=== PATIENT | male | born 1975 | race Caucasian/White ===

== ENCOUNTER 2018-01-16 18:46 | Inpatient (IN) | payer OTHER ==
[2018-01-16] MEDS ORDERED: SODIUM CHLORIDE 0.9% 1,000 ML IV ONE ×3 (19:07→19:11)
[2018-01-16] MEDS ORDERED: ONDANSETRON 4 MG/2 ML VIAL IVP STA (19:11)
[2018-01-16] MEDS ORDERED: MORPHINE 10 MG/ML VIAL IVP STA (19:11)
[2018-01-16 19:12] LABS: VBG PH 7.105 (7.31-7.41)
--- NOTE | 2018-01-16 19:12 | ED Physician Documentation ---
History of Present Illness - Stated complaint Stated Complaint: VOMITING - Chief complaint Chief Complaint: Abd Pain - History obtained from History obtained from: Patient, Family - History of Present Illness Timing: How many days ago (3) Pain level max: 8 Pain level now: 8 Improved by: nothing Worsened by: nothing - Additonal information Additional information: Patient is a 42-year-old male with a history of insulin-dependent diabetes he stopped taking insulin approximately 2 years ago. States he has been vomiting for the past 3-4 days. Diffuse abdominal pain. No fevers. Also feels very dehydrated. Has not checked his blood sugar. Review of Systems Ten Systems: 10 systems reviewed and negative Constitutional: denies: Fever, Chills Ears: denies: Ear pain Nose: denies: Rhinorrhea / runny nose, Congestion Throat: denies: Sore throat Cardiac: denies: Chest pain / pressure Respiratory: denies: Cough GI: denies: Nausea, Vomiting, Diarrhea Skin: denies: Rash Musculoskeletal: denies: Neck pain, Back pain Neurologic: denies: Headache PD PAST MEDICAL HISTORY - Past Medical History Past Medical History: Yes Endocrine/Autoimmune: Type 2 diabetes - Past Surgical History Past Surgical History: Yes Ortho: Knee replacement - Present Medications Home Medications: Ambulatory Orders Medication Instructions Recorded Confirmed No Known Home Medications [No 01/16/18 01/16/18 Known Home Medications] - Allergies Allergies/Adverse Reactions: Allergies Allergy/AdvReac Type Severity Reaction Status Date / Time No Known Drug Allergies Allergy Verified 03/03/13 18:50 - Social History Does the pt smoke?: Yes Smoking Status: Current every day smoker Does the pt drink ETOH?: No Does the pt have substance abuse?: No - Immunizations Immunizations are current?: Yes PD ED PE NORMAL - Vitals Vital signs reviewed: Yes - General General: Alert and oriented X 3, No acute distress - HEENT HEENT: Other (dry lips, ketotic smell) - Neck Neck: Supple, no meningeal sign - Cardiac Cardiac: Other (tachycardiac) - Respiratory Respiratory: Other (kussmaul breathing) - Abdomen Abdomen: Soft, Non tender, Non distended - Derm Derm: Warm and dry, No rash - Extremities Extremities: No edema, No calf tenderness / cord - Neuro Neuro: Alert and oriented X 3 - Psych Psych: Normal mood, Normal affect Results - Vitals Vitals: Vital Signs - 24 hr 01/16/18 18:51 Temperature 36.1 C L Heart Rate 131 H Respiratory 32 H Rate Blood Pressure 107/70 O2 Saturation 100 Oxygen O2 Source Room air - Labs Labs: Laboratory Tests 01/16/18 01/16/18 01/16/18 19:02 19:02 19:02 WBC 22.5 H RBC 5.32 Hgb 16.2 Hct 52.7 H MCV 99.0 H MCH 30.5 MCHC 30.9 L RDW 13.8 Plt Count 365 MPV 9.2 Neut # Not Reportable Lymph # Not Reportable [place] # Not Reportable Eos # Not Reportable Baso # Not Reportable Absolute Nucleated RBC Not Reportable Total Counted 100 Band Neuts % (Manual) 4 Abnorm Lymph % (Manual) 0 Nucleated RBC % Not Reportable Neutrophils # (Manual) 20.9 H Lymphocytes # (Manual) 0.2 L Monocytes # (Manual) 1.4 H Eosinophils # (Manual) 0.0 Basophils # (Manual) 0.0 Manual Slide Review Indicated Platelet Estimate NORMAL (130-450,000) Platelet Morphology 1+ LARGE PLATELETS RBC Morph Micro Appear NORMAL APPEARANCE VBG pH 7.105 L VBG pCO2 16.0 L VBG pO2 51.6 H VBG HCO3 4.9 L VBG Total CO2 5.4 L VBG O2 Saturation 78.0 VBG Base Excess -22.3 L Sodium 119 L* Potassium 4.6 Chloride 71 L* Carbon Dioxide 6 L* Anion Gap 42.0 H BUN 41 H Creatinine 2.5 H Estimated GFR (MDRD) 28 L Glucose 1086 H* Calcium 9.7 Total Bilirubin 2.0 H AST 19 ALT 20 Alkaline Phosphatase 109 Total Protein 8.4 H Albumin 5.0 Globulin 3.4 Albumin/Globulin Ratio 1.5 Lipase 159 H Serum Ketones LARGE H PD MEDICAL DECISION MAKING - ED course Complexity details: reviewed results, re-evaluated patient, considered differential, d/w patient, d/w family, d/w staffing consultant ED course: Patient is a 42-year-old male who presents to the emergency department vomiting. Found to be in diabetic ketoacidosis. Given IV fluids and started on insulin drip. Discussed the case with Dr. Golden, hospitalist will admit to ICU for further care. This document was made in part using voice recognition software. While efforts are made to proofread this document, sound alike and grammatical errors may occur. Departure - Departure Disposition: 66 [facility] DC/Xfer Clinical Impression: Diabetic ketoacidosis Qualifiers: Diabetes mellitus type: other specified (including MAX) Diabetes mellitus complication detail: without coma Qualified Code(s): E13.10 - Other specified diabetes mellitus with ketoacidosis without coma Condition: Serious
[2018-01-16 19:13] LABS: VBG BASE EXCESS -22.3 mmol/L (-2 - +2); VBG PO2 51.6 mmHg (25-47); VBG TOTAL CO2 5.4 mmol/L (24-29)
[2018-01-16] MEDS ORDERED: INSULIN REGULAR HUMAN 100 UNIT in SODIUM CHLORIDE 0.9% 100ML 99 ML IV STA (19:16)
[2018-01-16 19:21] LABS: KETONES, SERUM (ACETEST) LARGE (NEGATIVE)
[2018-01-16 19:31] LABS: ALBUMIN/GLOBULIN RATIO 1.5 (1.0-2.2); ALKALINE PHOSPHATASE 109 IU/L (42-121); ALT ALANINE AMINOTRANSFERASE 20 IU/L (10-60); AST ASPARTATE AMINOTRANSFERASE 19 IU/L (10-42); BASOPHILS % (AUTO) 0.3 %; BUN - BLOOD UREA NITROGEN 41 mg/dL (6-20); CALCIUM 9.7 mg/dL (8.5-10.3); CARBON DIOXIDE - CO2 6 mmol/L (21-32); CREATININE 2.5 mg/dL (0.6-1.2); GFR - MDRD 28 (>89); HGB - HEMOGLOBIN 16.2 g/dL (14.0-18.0); LIPASE 159 U/L (22-51); LYMPHOCYTES % (AUTO) 3.5 %; MEAN CORPUSCULAR HEMOGLOBIN 30.5 pg (27.0-31.0); MEAN CORPUSCULAR HGB CONC 30.9 g/dL (32.0-36.0); MEAN PLATELET VOLUME 9.2 fL (7.4-11.4); MONOCYTES % (AUTO) 11.2 %; PLT - PLATELET COUNT 365 10^3/uL (130-450); RED BLOOD COUNT 5.32 10^6/uL (4.70-6.10); RED CELL DISTRIBUTION WIDTH 13.8 % (12.0-15.0); SODIUM 119 mmol/L (135-145); TOTAL PROTEIN 8.4 g/dL (6.7-8.2)
[2018-01-16 19:32] LABS: CHLORIDE 71 mmol/L (101-111); GLUCOSE 1086 mg/dL (70-100); WHITE BLOOD COUNT 22.5 x10^3/uL (4.8-10.8)
[2018-01-16 19:33] LABS: ABNORMAL LYMPHS % (MANUAL) 0 %
[2018-01-16 19:45] LABS: BAND NEUTROPHILS % (MANUAL) 4 %; LYMPHOCYTES # (MANUAL) 0.2 10^3/uL (1.5-3.5); LYMPHOCYTES % (MANUAL) 1 %; MONOCYTES # (MANUAL) 1.4 10^3/uL (0.0-1.0); NEUTROPHILS # (MANUAL) 20.9 10^3/uL (1.5-6.6); NEUTROPHILS % (MANUAL) 89 %
[2018-01-16 19:48] LABS: PLATELET MORPHOLOGY 1+ LARGE PLATELETS (NORMAL); RBC MORPHOLOGY (MULTIPLE) NORMAL APPEARANCE (NORMAL)
[2018-01-16 19:49] LABS: PLATELET ESTIMATE, MANUAL NORMAL (130-450,000) (NORMAL)
[2018-01-16 20:38] LABS: BILIRUBIN,URINE NEGATIVE (NEGATIVE); GLUCOSE, URINE (UA) >=1000 mg/dL (NEGATIVE); KETONES,URINE (UA) >=80 mg/dL (NEGATIVE); LEUKOCYTE ESTERASE, URINE NEGATIVE (NEGATIVE); NITRITE,URINE NEGATIVE (NEGATIVE); OCCULT BLOOD,URINE TRACE-LYSE (NEGATIVE); PH,URINE 5.5 PH (5.0-7.5); PROTEIN,URINE NEGATIVE (NEGATIVE); UROBILINOGEN,URINE 0.2 (NORMAL) E.U./dL (NORMAL)
[2018-01-16 20:41] LABS: CLARITY,URINE CLEAR (CLEAR)
[2018-01-16] MEDS ORDERED: IBUPROFEN 600 MG TABLET PO PRN (20:45)
[2018-01-16] MEDS: GI COCKTAIL 120 ML BOTTLE PO PRN (21:30)
[2018-01-16] MEDS ORDERED: PHENOL THROAT SPRAY 177 ML MM PRN (22:11)
[2018-01-16] MEDS ORDERED: INSULIN REGULAR HUMAN 100 UNIT in SODIUM CHLORIDE 0.9% 100ML 99 ML IV SCH (22:13)
[2018-01-16] MEDS ORDERED: POTASSIUM PHOSPHATE 21 MMOL in SODIUM CHLORIDE 0.9% 250 ML IV SCH (22:13)
[2018-01-16 22:34] LABS: KETONES, SERUM (ACETEST) LARGE (NEGATIVE)
[2018-01-16] MEDS: NS W/20 MEQ KCL 1,000 ML IV SCH (22:44)
[2018-01-16 22:45] LABS: BUN - BLOOD UREA NITROGEN 39 mg/dL (6-20); CALCIUM 9.3 mg/dL (8.5-10.3); CHLORIDE 82 mmol/L (101-111); GFR - MDRD 37 (>89); MAGNESIUM 2.4 mg/dL (1.7-2.8); SODIUM 127 mmol/L (135-145)
[2018-01-16] MEDS: MORPHINE 2 MG/ML SYRINGE IVP PRN (22:45)
[2018-01-16 22:46] LABS: CARBON DIOXIDE - CO2 9 mmol/L (21-32)
[2018-01-16] MEDS: SODIUM CHLORIDE FLUSH 0.9% 10 ML SYRINGE IVP PRN (22:46)
[2018-01-16 22:47] LABS: GLUCOSE 736 mg/dL (70-100)
[2018-01-16] MEDS: NICOTINE 21 MG PATCH TOP SCH (22:48)
[2018-01-16 22:53] LABS: HB2 TOTAL 18.4 g/dL; HEMOGLOBIN A1C 2.08 g/dL; HEMOGLOBIN A1C % 12.5 % (4.6-6.2)
--- NOTE | 2018-01-16 22:57 | HISTORY & PHYSICAL EXAMINATION ---
Chief Complaint - Chief Complaint Chief Complaint: Nausea and vomiting for 3 days History of Present Illness - Admitted From Admitted From:: home - History Obtained From History obtained from: patient, ED physician - History of Present Illness HPI Comment/Other: Mr. Luis Gunderson is a pleasant 42-year-old gentleman who has been having nausea and vomiting for 3 days. He says he typically drinks a lot of fluids but has been drinking much more and has also been experiencing increasing weakness. Patient relates that he has a history of type 2 diabetes mellitus and while in the was taking 20 units of insulin daily. He also notes that 2 years ago, when he retired from the , he simply just stopped taking anything for his diabetes. He gives no reason why, other than he just did not feel like taking anything any longer. Upon presentation to the emergency department patient was found to be in diabetic ketoacidosis with an blood glucose level greater than 1000, severe acidosis, and severe hyponatremia/hypochloremia.He will be admitted to the intensive care unit and placed on diabetic ketoacidosis protocol. History - Past Medical History Cardiovascular: reports: None Respiratory: reports: None Neuro: reports: None Endocrine/Autoimmune: reports: Type 2 diabetes GI: reports: None : reports: None HEENT: reports: None Psych: reports: None Musculoskeletal: reports: None Derm: reports: None MRSA Hx?: No - Past Surgical History Ortho: reports: Knee replacement Meds/Allgy - Home Medications Home Medications: Ambulatory Orders Medication Instructions Recorded Confirmed No Known Home Medications [No 01/16/18 01/16/18 Known Home Medications] - Allergies Allergies/Adverse Reactions: Allergies Allergy/AdvReac Type Severity Reaction Status Date / Time No Known Drug Allergies Allergy Verified 03/03/13 18:50 Review of Systems - Constitutional Constitutional: reports: Fatigue, Weakness. denies: Fever, Chills, Night sweats - Eyes Eyes: denies: Pain, Blurred vision, Dipolpia - Ears, Nose & Throat Ears, Nose & Throat: denies: Ear pain, Hearing loss, Tinnitus, Vertigo, Nasal discharge, Nosebleeds - Cardiovascular Cariovascular: denies: Irregular heart rate, Palpitations, Chest pain, Edema, Syncope - Respiratory Respiratory: denies: Cough, Sputum production, Wheezing, Hemoptysis, SOB at rest , SOB with exertion - Gastrointestinal Gastrointestinal: reports: Abdominal pain, Nausea, Vomiting. denies: Abdominal distention, Constipation, Diarrhea, Change in bowel habits, Rectal bleeding - Genitourinary Genitourinary: denies: Dysuria, Frequency, Urgency, Hematuria - Musculoskeletal Musculoskeletal: denies: Muscle pain, Back pain, Muscle aches, Stiffness - Integumentary Integumentary: denies: Rash, Pruritis, Lesions, Dryness - Neurological Neurological: reports: General weakness. denies: Focal weakness, Headache, Dizziness, Numbness, Seizures - Psychiatric Psychiatric: denies: Depression, Anxiety, Suicidal, Hallucinations - Endocrine Endocrine: reports: Polydypsia. denies: Polyuria, Polyphagia - Hematologic/Lymphatic Hematologic/Lymphatic: denies: Anemia, Bruising, Petechiae, Lymphadenopathy - All Other Systems All Other Systems: reports: Reviewed and negative Exam - Vital Signs Reviewed Vital Signs: Yes Vital Signs: Vital Signs x48h Temp Pulse Pulse Resp BP BP Pulse Ox 01/16/18 22:00 126 H 19 133/90 H 100 01/16/18 21:48 36.9 C 01/16/18 21:44 122 H 20 119/88 H 100 01/16/18 21:15 126 H 21 132/98 H 100 - Physical Exam General Appearance: positive: Alert, Mild distress Eyes Bilateral: positive: Normal inspection, PERRL, EOMI, No lid inflammation, Conjunctivae nml, No scleral icterus ENT: positive: ENT inspection nml, Pharynx nml, No signs of dehydration Neck: positive: Nml inspection, Thyroid nml, No JVD, Trachea midline. negative : Thyromegaly Respiratory: positive: Chest non-tender, No respiratory distress, Breath sounds nml. negative: Wheezes, Rales, Rhonchi Cardiovascular: positive: Regular rate & rhythm, No murmur, No gallop Peripheral Pulses: positive: 1+ Abdomen: positive: Non-tender, No organomegaly, Nml bowel sounds. negative: Guarding, Rebound, Hepatomegaly, Splenomegaly, Mass Back: positive: Nml inspection. negative: CVA tenderness (R), CVA tenderness (L ) Skin: positive: Color nml, No rash, Warm, Dry. negative: Cyanosis Extremities: positive: Non-tender, Full ROM, Nml appearance, No pedal edema Neurologic/Psychiatric: positive: Oriented x3, CN's nml (2-12), Motor nml, Sensation nml, Mood/affect nml Conclusion/Plan - Problem List (1) Diabetic ketoacidosis Conclusion/Plan: The patient is a type II diabetic who was on 20 units of insulin up until 2 years ago when he stopped abruptly for no apparent reason. His electrolytes are in balance, as might be expected with a glucose of over 1000. We have placed him in the intensive care unit on an insulin drip and our monitor him closely. He is also likely very dehydrated and we will be replacing his fluids aggressively. We will correct his electrolyte abnormalities and when he is no longer ketotic will consider moving him to the medical surgical floor. He will need to be discharged home on an insulin regimen and it has been emphasized multiple times by multiple providers during this admission that he must become compliant and address his diabetes. At this time the patient's blood pressure and pulse are mildly elevated and this very well may be secondary to his presumed dehydration. We will monitor him and address any remaining issues once he is no longer in diabetic ketoacidosis. Qualifiers: Diabetes mellitus type: type 2 Diabetes mellitus complication detail: without coma Qualified Code(s): E11.10 - Type 2 diabetes mellitus with ketoacidosis without coma - Lab Results Lab results reviewed: Yes Fish Bones: 01/16/18 19:02 01/16/18 21:50 Core Measures - Anticipated LOS I expect patient to be DC'd or transferred within 96 hours.: Yes - DVT/VTE - Prophylaxis VTE/DVT Device ordered at admit?: Yes
[2018-01-16] MEDS ORDERED: SODIUM BICARBONATE 100 MEQ in DEXTROSE 5% 1,000 ML IV SCH (23:00)
[2018-01-17] MEDS: MORPHINE 2 MG/ML SYRINGE IVP PRN ×3 (00:29→23:55)
[2018-01-17] MEDS: MAG HYDROX/AL HYDROX/SIMETH 30 ML UDC PO PRN ×3 (00:30→04:33)
[2018-01-17] MEDS: POTASSIUM CHLOR 10 MEQ/100 ML 10 MEQ/100 ML BAG IV SCH ×2 (00:32→01:33)
[2018-01-17 01:03] LABS: KETONES, SERUM (ACETEST) LARGE (NEGATIVE)
[2018-01-17 01:15] LABS: BUN - BLOOD UREA NITROGEN 38 mg/dL (6-20); CALCIUM 9.1 mg/dL (8.5-10.3); CARBON DIOXIDE - CO2 11 mmol/L (21-32); CHLORIDE 93 mmol/L (101-111); CREATININE 1.8 mg/dL (0.6-1.2); GFR - MDRD 41 (>89); GLUCOSE 482 mg/dL (70-100); MAGNESIUM 2.2 mg/dL (1.7-2.8); SODIUM 129 mmol/L (135-145)
[2018-01-17] MEDS: SODIUM CHLORIDE FLUSH 0.9% 10 ML SYRINGE IVP SCH ×3 (01:49→17:23)
[2018-01-17 02:26] LABS: KETONES, SERUM (ACETEST) MODERATE (NEGATIVE)
[2018-01-17 02:30] LABS: BUN - BLOOD UREA NITROGEN 34 mg/dL (6-20); CALCIUM 9.5 mg/dL (8.5-10.3); CARBON DIOXIDE - CO2 16 mmol/L (21-32); CHLORIDE 96 mmol/L (101-111); CREATININE 1.5 mg/dL (0.6-1.2); GFR - MDRD 51 (>89); GLUCOSE 358 mg/dL (70-100); MAGNESIUM 2.1 mg/dL (1.7-2.8); SODIUM 130 mmol/L (135-145)
[2018-01-17] MEDS: ONDANSETRON 4 MG/2 ML VIAL IVP PRN ×2 (03:40→23:55)
[2018-01-17] MEDS: NS W/20 MEQ KCL 1,000 ML IV SCH ×4 (03:46→19:59)
[2018-01-17] MEDS ORDERED: PROCHLORPERAZINE 10 MG/2 ML VIAL ONE (04:13)
[2018-01-17] MEDS ORDERED: MAG HYDROX/AL HYDROX/SIMETH 30 ML UDC ONE (04:28)
[2018-01-17] MEDS ORDERED: PHENobarb/HYOSCY/ATROPINE/SCOP 5 ML UDC PO ONE (04:28)
[2018-01-17] MEDS ORDERED: LIDOCAINE VISCOUS 2% 15 ML UDC MM ONE (04:29)
[2018-01-17 04:47] LABS: KETONES, SERUM (ACETEST) MODERATE (NEGATIVE)
[2018-01-17 04:53] LABS: PHOSPHORUS 1.6 mg/dL (2.5-4.6)
[2018-01-17 05:29] LABS: BUN - BLOOD UREA NITROGEN 35 mg/dL (6-20); CALCIUM 9.1 mg/dL (8.5-10.3); CARBON DIOXIDE - CO2 17 mmol/L (21-32); CHLORIDE 99 mmol/L (101-111); CREATININE 1.3 mg/dL (0.6-1.2); GFR - MDRD 60 (>89); GLUCOSE 309 mg/dL (70-100); SODIUM 131 mmol/L (135-145)
[2018-01-17 05:33] LABS: KETONES, SERUM (ACETEST) MODERATE (NEGATIVE)
[2018-01-17] MEDS: SODIUM CHLORIDE FLUSH 0.9% 10 ML SYRINGE IVP PRN ×3 (06:45→13:20)
[2018-01-17 06:54] LABS: HB2 TOTAL 16.9 g/dL; HEMOGLOBIN A1C 1.87 g/dL; HEMOGLOBIN A1C % 12.3 % (4.6-6.2)
[2018-01-17] MEDS ORDERED: POTASSIUM PHOSPHATE 15 MMOL in SODIUM CHLORIDE 0.9% 250 ML IV ONE (07:00)
[2018-01-17] MEDS ORDERED: PROCHLORPERAZINE 10 MG/2 ML VIAL IVP PRN (07:36)
[2018-01-17] MEDS ORDERED: INSULIN ASPART 300 UNIT/3 ML PEN SUBQ SCH (08:00)
[2018-01-17 08:54] LABS: CHOL/HDL RATIO 4.4 (<5.0); CHOLESTEROL 200 mg/dL; HDL CHOLESTEROL 45 mg/dL; LDL CHOLESTEROL,CALCULATED 134 mg/dL; VLDL CHOLESTEROL 21 mg/dL
[2018-01-17] MEDS: NICOTINE 21 MG PATCH TOP SCH (09:05)
[2018-01-17] MEDS: INSULIN REGULAR HUMAN 100 UNIT in SODIUM CHLORIDE 0.9% 100ML 99 ML IV SCH (09:18)
[2018-01-17] MEDS: SUCRALFATE 1 GM/10 ML UDC PO SCH ×4 (09:20→23:51)
[2018-01-17] MEDS ORDERED: FAMOTIDINE 20 MG in SODIUM CHLORIDE 0.9% 50 ML IV SCH (10:00)
[2018-01-17 10:14] LABS: VBG PCO2 32.2 mmHg (41-51); VBG PH 7.29 (7.31-7.41); VBG PO2 64.6 mmHg (25-47)
[2018-01-17 10:15] LABS: VBG BASE EXCESS -10.1 mmol/L (-2 - +2); VBG TOTAL CO2 16.2 mmol/L (24-29)
[2018-01-17 10:40] LABS: KETONES, SERUM (ACETEST) MODERATE (NEGATIVE)
[2018-01-17 10:42] LABS: GLUCOSE 283 mg/dL (70-100)
[2018-01-17] MEDS ORDERED: IOPAMIDOL-300 100 ML VIAL ONE (10:49)
[2018-01-17] MEDS ORDERED: IOPAMIDOL-300 50 ML VIAL ONE (10:49)
[2018-01-17] MEDS: ACETAMINOPHEN 1,000 MG/100 ML 100 ML IV PRN (11:05)
--- NOTE | 2018-01-17 12:13 | PROVIDER PROGRESS NOTE ---
Assessment/Plan - Problem List (1) Diabetic ketoacidosis Qualifiers: Diabetes mellitus type: type 2 Diabetes mellitus complication detail: without coma Qualified Code(s): E11.10 - Type 2 diabetes mellitus with ketoacidosis without coma Assessment/Plan: Pt still has moderate serum ketones. Glu 250's on 2 u Insulin drip. Will resume Insulin drip til ketones clear. Will continue NS til glu <200. Pt had no reason for why he stopped Insulin 2 years ago. A1c was 13. He needs Nutrition Consult. (2) Abdominal pain of unknown cause Assessment/Plan: Will add Protonix iv to Pepcid iv and add Sucralfate, Ofirmev for pain so as to decrease narcotics and get an H. pylori eval and abdominal CT. (3) Nausea & vomiting Assessment/Plan: Pt said he was vomiting for 3 days. Perhaps a viral gastrenteritis pushed him into DKA vs gastroparesis or other etilogy. Now he is nauseated and has no appetite for solids. Will decrease diet to clear liquids and add the treatment as above for GERD or PUD, plus give antiemetics. - Current Meds Current Meds: Current Medications Generic Name Dose Route Start Last Admin Trade Name Freq PRN Reason Stop Dose Admin Al Hydroxide/Mg Hydroxide 30 ml 01/16/18 23:58 01/17/18 04:33 Mylanta Plus PO 30 ml Q4HR PRN Administration INDIGESTION Potassium Chloride/Sodium Chloride 1,000 mls @ 200 mls/hr 01/16/18 21:00 11:00 Normal Saline 0.9% W/20 Meq Kcl IV 200 mls/hr .Q5H SHAVON Infusion Insulin Human Regular 100 unit 100 mls @ 6.9 mls/hr 01/17/18 09:10 01/17/18 11:00 / Sodium Chloride IV 1 unit/hr .[id number] SHAVON 1 mls/hr Protocol Titration 6.9 UNIT/HR Acetaminophen 100 mls @ 400 mls/hr 01/17/18 10:32 01/17/18 11:20 Ofirmev IV Infused Q6HR PRN Infusion PAIN Morphine Sulfate 2 mg 01/16/18 22:16 01/17/18 03:43 Morphine IVP 2 mg Q2H PRN Administration PAIN Nicotine 1 patch 01/16/18 23:00 01/17/18 09:05 Nicohamida LYNN Not Given DAILY SHAVON Ondansetron HCl 4 mg 01/16/18 22:16 01/17/18 03:40 Zofran Inj IVP 4 mg Q4HR PRN Administration Nausea / Vomiting Phenol/Menthol 2 sprays 01/16/18 22:11 01/16/18 22:47 Chloraseptic MM 2 sprays Q2HR PRN Administration Throat Pain Sodium Chloride 10 ml 01/17/18 01:00 01/17/18 09:05 Normal Saline Flush 0.9% IVP 10 ml 0100,0900,1700 SHAVON Administration Sodium Chloride 10 ml 01/16/18 20:45 01/17/18 11:06 Normal Saline Flush 0.9% IVP 10 ml PRN PRN Administration NEEDED PER PROVIDER ORDERS Sucralfate 1 gm 01/17/18 09:00 01/17/18 11:33 Carafate PO Not Given 0700,1100,1600,2200 SHAVON - Lab Result Fish Bone Diagrams: 01/16/18 19:02 01/17/18 13:10 - Additional Planning My Orders: My Active Orders 01/17/18 Abdomen W/ [CT] Routine H.PYLORI AG SCREEN STOOL Routine 01/17/18 08:49 Metoclopramide Inj [Reglan Inj] 5 mg IVP Q6HR PRN 01/17/18 09:00 Sucralfate [Carafate] 1 gm PO 0700,1100,1600,2200 01/17/18 09:10 Sodium Chloride 0.9% 100Ml [Normal Saline 0.9% 100Ml] 99 ml Insulin Regular Human [NovoLIN R] 100 unit IV 6.9 unit/hr 01/17/18 10:00 Famotidine [Pepcid] 20 mg Sodium Chloride 0.9% [Normal Saline 0.9%] 50 ml IV BID 01/17/18 10:10 Nutrition Consult [CONS] Routine 01/17/18 10:32 Acetaminophen 1,000 mg/100 ml [Ofirmev] 100 ml IV Q6HR 01/17/18 10:50 BMP - BASIC METABOLIC PANEL [CHEM] Timed KETONES, SERUM (ACETEST) [CHEM] Timed MAGNESIUM [CHEM] Timed 01/17/18 12:50 BMP - BASIC METABOLIC PANEL [CHEM] Timed KETONES, SERUM (ACETEST) [CHEM] Timed MAGNESIUM [CHEM] Timed 01/17/18 19:50 GLUCOSE [CHEM] Timed 01/17/18 20:50 TROPONIN I [IAI] Timed 01/17/18 21:00 Pantoprazole [Protonix] 40 mg IV BID 01/17/18 Lunch DIET [Clear Liquid Diet] [DIET] 01/18/18 04:50 KETONES, SERUM (ACETEST) [CHEM] Timed 01/18/18 05:00 CBC - COMP BLD CT W/AUTO DIFF [HEME] DAILYLAB PHOSPHORUS [CHEM] DAILYLAB Subjective - Subjective Patient Reports: Abdominal Pain, Other (Burning in esophagus.) Nursing Reports: Other (Still nauseated, wretching, wants no solid food.) Objective Vital Signs: Vital Signs - 24 hr 01/16/18 01/16/18 01/16/18 21:15 21:44 21:48 Temperature 36.9 C Heart Rate 126 H Heart Rate [ 122 H Monitoring electrodes] Respiratory 21 20 Rate Blood Pressure 132/98 H Blood Pressure 119/88 H [Left Brachial artery] O2 Saturation 100 100 01/16/18 01/16/18 01/17/18 22:00 23:00 00:00 Temperature Heart Rate Heart Rate [ 126 H 131 H 121 H Monitoring electrodes] Respiratory 19 16 15 Rate Blood Pressure Blood Pressure 133/90 H 118/87 H 113/87 H [Left Brachial artery] O2 Saturation 100 100 99 01/17/18 01/17/18 01/17/18 01:00 02:00 03:00 Temperature Heart Rate Heart Rate [ 118 H 118 H 115 H Monitoring electrodes] Respiratory 16 17 15 Rate Blood Pressure Blood Pressure 103/81 H 124/90 H 114/80 [Left Brachial artery] O2 Saturation 98 99 98 01/17/18 01/17/18 01/17/18 04:00 04:41 05:00 Temperature 36.8 C Heart Rate Heart Rate [ 116 H 115 H Monitoring electrodes] Respiratory 16 15 Rate Blood Pressure Blood Pressure 124/80 108/77 [Left Brachial artery] O2 Saturation 94 98 01/17/18 01/17/18 01/17/18 08:00 09:00 10:00 Temperature 36.3 C L Heart Rate Heart Rate [ 117 H 118 H 120 H Monitoring electrodes] Respiratory 14 18 15 Rate Blood Pressure Blood Pressure 108/73 110/72 100/65 [Left Brachial artery] O2 Saturation 98 98 97 01/17/18 01/17/18 11:00 12:00 Temperature Heart Rate Heart Rate [ 115 H 115 H Monitoring electrodes] Respiratory 15 16 Rate Blood Pressure Blood Pressure 119/83 H 110/74 [Left Brachial artery] O2 Saturation 98 100 Oxygen O2 Source Room air I&O (Last 24 Hrs): Intake and Output Totals x24h 01/15/18 01/16/18 01/17/18 23:59 23:59 23:59 Intake Total 584.763 7709.002 Output Total 650 1140 Balance -347.185 5018.002 General: Alert, Oriented x3, Moderate distress HEENT: Other (Dry oral mucosa) Neck: Supple, No JVD Neuro: Non Focal Cardiovascular: Regular rate, No murmurs Respiratory: No respiratory distress Abdomen: Soft, Other (Guarding, decreased bowel sounds) Extremities: No edema - Results Results: Laboratory Results WBC 22.5 x10^3/uL (4.8-10.8) H 01/16/18 19:02 RBC 5.32 10^6/uL (4.70-6.10) 01/16/18 19:02 Hgb 16.2 g/dL (14.0-18.0) 01/16/18 19:02 Hct 52.7 % (42.0-52.0) H 01/16/18 19:02 MCV 99.0 fL (80.0-94.0) H 01/16/18 19:02 MCH 30.5 pg (27.0-31.0) 01/16/18 19:02 MCHC 30.9 g/dL (32.0-36.0) L 01/16/18 19:02 RDW 13.8 % (12.0-15.0) 01/16/18 19:02 Plt Count 365 10^3/uL (130-450) 01/16/18 19:02 MPV 9.2 fL (7.4-11.4) 01/16/18 19:02 Neut # Not Reportable 01/16/18 19:02 Lymph # Not Reportable 01/16/18 19:02 [place] # Not Reportable 01/16/18 19:02 Eos # Not Reportable 01/16/18 19:02 Baso # Not Reportable 01/16/18 19:02 Absolute Nucleated RBC Not Reportable 01/16/18 19:02 Total Counted 100 01/16/18 19:02 Band Neuts % (Manual) 4 % (0-10) 01/16/18 19:02 Abnorm Lymph % (Manual) 0 % 01/16/18 19:02 Nucleated RBC % Not Reportable 01/16/18 19:02 Neutrophils # (Manual) 20.9 10^3/uL (1.5-6.6) H 01/16/18 19:02 Lymphocytes # (Manual) 0.2 10^3/uL (1.5-3.5) L 01/16/18 19:02 Monocytes # (Manual) 1.4 10^3/uL (0.0-1.0) H 01/16/18 19:02 Eosinophils # (Manual) 0.0 10^3/uL (0-0.7) 01/16/18 19:02 Basophils # (Manual) 0.0 10^3/uL (0-0.1) 01/16/18 19:02 Manual Slide Review Indicated 01/16/18 19:02 Platelet Estimate NORMAL (130-450,000) (NORMAL) 01/16/18 19:02 Platelet Morphology 1+ LARGE PLATELETS (NORMAL) 01/16/18 19:02 RBC Morph Micro Appear NORMAL APPEARANCE (NORMAL) 01/16/18 19:02 VBG pH 7.290 (7.31-7.41) L 01/17/18 10:04 VBG pCO2 32.2 mmHg (41-51) L 01/17/18 10:04 VBG pO2 64.6 mmHg (25-47) H 01/17/18 10:04 VBG HCO3 15.2 mmol/L (23-28) L 01/17/18 10:04 VBG Total CO2 16.2 mmol/L (24-29) L 01/17/18 10:04 VBG O2 Saturation 92.2 % (60-80) H 01/17/18 10:04 VBG Base Excess -10.1 mmol/L (-2 - +2) L 01/17/18 10:04 Sodium 131 mmol/L (135-145) L 01/17/18 04:25 Potassium 4.5 mmol/L (3.5-5.0) 01/17/18 04:25 Chloride 99 mmol/L (101-111) L 01/17/18 04:25 Carbon Dioxide 17 mmol/L (21-32) L 01/17/18 04:25 Anion Gap 15.0 (6-13) H 01/17/18 04:25 BUN 35 mg/dL (6-20) H 01/17/18 04:25 Creatinine 1.3 mg/dL (0.6-1.2) H 01/17/18 04:25 Estimated GFR (MDRD) 60 (>89) L 01/17/18 04:25 Glucose 283 mg/dL (70-100) H 01/17/18 10:04 POC Whole Bld Glucose 272 mg/dL (70 - 100) H 01/17/18 11:14 Glycated Hemoglobin 12.3 % (4.6-6.2) H 01/17/18 04:25 Estim Average Glucose 306 (70-100) H 01/17/18 04:25 Lactic Acid 3.0 mmol/L (0.5-2.2) H* 01/16/18 21:50 Calcium 9.1 mg/dL (8.5-10.3) 01/17/18 04:25 Phosphorus 1.6 mg/dL (2.5-4.6) L 01/17/18 04:25 Magnesium 2.0 mg/dL (1.7-2.8) 01/17/18 10:04 Total Bilirubin 2.0 mg/dL (0.2-1.0) H 01/16/18 19:02 AST 19 IU/L (10-42) 01/16/18 19:02 ALT 20 IU/L (10-60) 01/16/18 19:02 Alkaline Phosphatase 109 IU/L (42-121) 01/16/18 19:02 Lactate Dehydrogenase 140 IU/L (91-225) 01/17/18 04:25 Troponin I < 0.04 ng/mL (<0.49) 01/17/18 10:04 Total Protein 8.4 g/dL (6.7-8.2) H 01/16/18 19:02 Albumin 5.0 g/dL (3.2-5.5) 01/16/18 19:02 Globulin 3.4 g/dL (2.1-4.2) 01/16/18 19:02 Albumin/Globulin Ratio 1.5 (1.0-2.2) 01/16/18 19:02 Triglycerides 106 mg/dL (-149) 01/17/18 08:12 Cholesterol 200 mg/dL (-199) H 01/17/18 08:12 LDL Cholesterol, Calc 134 mg/dL (-129) H 01/17/18 08:12 VLDL Cholesterol 21 mg/dL 01/17/18 08:12 HDL Cholesterol 45 mg/dL (60-) L 01/17/18 08:12 LDL/HDL Ratio 3.0 (<3.6) 01/17/18 08:12 Cholesterol/HDL Ratio 4.4 (<5.0) 01/17/18 08:12 Lipase 159 U/L (22-51) H 01/16/18 19:02 Urine Color LT. YELLOW 01/16/18 20:33 Urine Clarity CLEAR (CLEAR) 01/16/18 20:33 Urine pH 5.5 PH (5.0-7.5) 01/16/18 20:33 Ur Specific [place] 1.020 (1.002-1.030) 01/16/18 20:33 Urine Protein NEGATIVE mg/dL (NEGATIVE) 01/16/18 20:33 Urine Glucose (UA) >=1000 mg/dL (NEGATIVE) H 01/16/18 20:33 Urine Ketones >=80 mg/dL (NEGATIVE) H 01/16/18 20:33 Urine Occult Blood TRACE-LYSE (NEGATIVE) 01/16/18 20:33 Urine Nitrite NEGATIVE (NEGATIVE) 01/16/18 20:33 Urine Bilirubin NEGATIVE (NEGATIVE) 01/16/18 20:33 Urine Urobilinogen 0.2 (NORMAL) E.U./dL (NORMAL) 01/16/18 20:33 Ur Leukocyte Esterase NEGATIVE (NEGATIVE) 01/16/18 20:33 Ur Microscopic Review NOT INDICATED 01/16/18 20:33 Urine Culture Comments NOT INDICATED 01/16/18 20:33 Serum Ketones MODERATE (NEGATIVE) H 01/17/18 10:04
[2018-01-17] MEDS ORDERED: IOPAMIDOL-300 100 ML VIAL IVP ONE (12:35)
[2018-01-17] MEDS ORDERED: IOPAMIDOL-300 50 ML VIAL PO ONE (12:35)
[2018-01-17] MEDS: GI COCKTAIL 120 ML BOTTLE PO PRN ×2 (13:11→17:23)
[2018-01-17 13:24] LABS: KETONES, SERUM (ACETEST) MODERATE (NEGATIVE)
[2018-01-17 13:27] LABS: BUN - BLOOD UREA NITROGEN 26 mg/dL (6-20); CALCIUM 8.8 mg/dL (8.5-10.3); CARBON DIOXIDE - CO2 18 mmol/L (21-32); CHLORIDE 102 mmol/L (101-111); CREATININE 1.1 mg/dL (0.6-1.2); GFR - MDRD 73 (>89); GLUCOSE 258 mg/dL (70-100); MAGNESIUM 2.1 mg/dL (1.7-2.8); SODIUM 132 mmol/L (135-145)
--- NOTE | 2018-01-17 14:10 | CT Report ---
EXAM: CT ABDOMEN EXAM DATE: 01/17/2018 12:40 PM. CLINICAL HISTORY: Epigastric pain, N/V. COMPARISON: None. TECHNIQUE: Routine helical CT imaging was performed through the abdomen. IV contrast: 100 cc Isovue- 300 Enteric contrast: Yes Reconstruction: Coronal and sagittal. As reportedly specifically requested by the ordering provider, pelvic imaging was not performed. In accordance with CT protocol optimization, one or more of the following dose reduction techniques w ere utilized for this exam: automated exposure control, adjustment of mA and/or KV based on patient s ize, or use of iterative reconstructive technique. FINDINGS: Lung Bases: Mild left posterior basilar atelectasis or scarring. Liver: Normal. No masses. Gallbladder/Bile Ducts: Unremarkable. Spleen: Normal. Pancreas: Normal. Adrenal Glands: Normal. Kidneys: Multiple bilateral nonobstructing calculi measuring up to 6.67 m on the left and 0.7 cm on t he right. No hydronephrosis or hydroureter. Included portions of the ureters are nondilated. No perin ephric stranding. Very small medial right upper pole cortical hypodensity is too small to definitivel y characterize but likely represents an incidental cyst. No definite mass. Peritoneal Cavity/Bowel: Normal. No free fluid, free air or adenopathy. No masses or acute inflammato ry process. The appendix is well visualized and normal. No bowel dilatation/obstruction. Vasculature: No aneurysms or other significant abnormality. Bones: No significant abnormality. There are mild degenerative disease of the spine. Other: None. IMPRESSION: 1. No definite acute abnormality of the abdomen. 2. Bilateral nonobstructing renal calculi. 3. Probable incidental small right renal cyst. [facility] Referring Provider Line: [phone] SITE ID: [id number]
--- NOTE | 2018-01-17 14:10 | CT Preliminary Report ---
Exam: CT ABDOMEN W/ IMPRESSION: 1. No definite acute abnormality of the abdomen. 2. Bilateral nonobstructing renal calculi. 3. Probable incidental small right renal cyst. [facility] SITE ID: [id number]
[2018-01-17] MEDS: FAMOTIDINE IV 20 MG/50 ML IV SCH ×2 (14:20→21:30)
[2018-01-17] MEDS ORDERED: INSULIN GLARGINE 300 UNIT/3 ML PEN SUBQ SCH (21:00)
[2018-01-17] MEDS: PANTOPRAZOLE 40 MG VIAL IV SCH (23:51)
[2018-01-18] MEDS: NS W/20 MEQ KCL 1,000 ML IV SCH ×2 (01:03→05:36)
[2018-01-18] MEDS: GI COCKTAIL 120 ML BOTTLE PO PRN ×5 (01:58→19:50)
[2018-01-18] MEDS: SODIUM CHLORIDE FLUSH 0.9% 10 ML SYRINGE IVP SCH ×4 (01:59→21:34)
[2018-01-18] MEDS: MORPHINE 2 MG/ML SYRINGE IVP PRN ×4 (03:49→12:25)
[2018-01-18] MEDS: METOCLOPRAMIDE 10 MG/2 ML VIAL IVP PRN (03:49)
[2018-01-18 05:00] LABS: BASOPHILS % (AUTO) 0.4 %; EOSINOPHILS % (AUTO) 0.1 %; HGB - HEMOGLOBIN 12.1 g/dL (14.0-18.0); LYMPHOCYTES # (AUTO) 1.8 10^3/uL (1.5-3.5); LYMPHOCYTES % (AUTO) 17.7 %; MEAN CORPUSCULAR HEMOGLOBIN 31.3 pg (27.0-31.0); MEAN CORPUSCULAR HGB CONC 34.2 g/dL (32.0-36.0); MEAN CORPUSCULAR VOLUME 91.6 fL (80.0-94.0); MEAN PLATELET VOLUME 8.4 fL (7.4-11.4); MONOCYTES # (AUTO) 1.3 10^3/uL (0.0-1.0); MONOCYTES % (AUTO) 12.4 %; NEUTROPHILS # (AUTO) 7.2 10^3/uL (1.5-6.6); NEUTROPHILS % (AUTO) 69.4 %; PLT - PLATELET COUNT 168 10^3/uL (130-450); RED BLOOD COUNT 3.86 10^6/uL (4.70-6.10); RED CELL DISTRIBUTION WIDTH 13.4 % (12.0-15.0); WHITE BLOOD COUNT 10.4 x10^3/uL (4.8-10.8)
[2018-01-18 05:09] LABS: BUN - BLOOD UREA NITROGEN 13 mg/dL (6-20); CALCIUM 8.1 mg/dL (8.5-10.3); CARBON DIOXIDE - CO2 21 mmol/L (21-32); CHLORIDE 104 mmol/L (101-111); CREATININE 0.7 mg/dL (0.6-1.2); GFR - MDRD 123 (>89); GLUCOSE 176 mg/dL (70-100); PHOSPHORUS 2.1 mg/dL (2.5-4.6); SODIUM 135 mmol/L (135-145)
[2018-01-18 05:20] LABS: KETONES, SERUM (ACETEST) MODERATE (NEGATIVE)
[2018-01-18 06:20] LABS: VBG PH 7.41 (7.31-7.41)
[2018-01-18] MEDS: SUCRALFATE 1 GM/10 ML UDC PO SCH ×4 (06:28→21:33)
[2018-01-18] MEDS ORDERED: NEUTRA-PHOS 250 MG TABLET PO SCH (07:00)
[2018-01-18] MEDS: SODIUM CHLORIDE FLUSH 0.9% 10 ML SYRINGE IVP PRN ×6 (07:52→21:34)
[2018-01-18] MEDS: D5.45NS W/20 MEQ KCL 1,000 ML IV SCH ×2 (07:53→15:56)
[2018-01-18] MEDS: INSULIN REGULAR HUMAN 100 UNIT in SODIUM CHLORIDE 0.9% 100ML 99 ML IV SCH ×2 (07:55→09:15)
[2018-01-18] MEDS: NICOTINE 21 MG PATCH TOP SCH (07:56)
[2018-01-18] MEDS: NEUTRA-PHOS 250 MG TABLET PO SCH ×3 (09:06→17:44)
[2018-01-18] MEDS: PANTOPRAZOLE 40 MG VIAL IV SCH ×2 (09:07→21:33)
[2018-01-18] MEDS: FAMOTIDINE IV 20 MG/50 ML IV SCH ×2 (09:16→21:31)
[2018-01-18] MEDS: ACETAMINOPHEN 1,000 MG/100 ML 100 ML IV PRN ×3 (09:54→23:03)
[2018-01-18] MEDS ORDERED: BENZOCAINE SPRAY MM PRN (12:22)
--- NOTE | 2018-01-18 13:27 | PROVIDER PROGRESS NOTE ---
Assessment/Plan - Problem List (1) Diabetic ketoacidosis Qualifiers: Diabetes mellitus type: type 2 Diabetes mellitus complication detail: without coma Qualified Code(s): E11.10 - Type 2 diabetes mellitus with ketoacidosis without coma Assessment/Plan: Ketones still moderate this am and he remains on Insulin drip at 1 U. Pt on D5 1/2 NS with KCl and drinking fluids. Glu running 170-220s Continue s.s. Insulin and will choose the amount of Lantus Insulin to start this evening. Nutrition Consult pending today as well. (2) GERD (gastroesophageal reflux disease) Qualifiers: Esophagitis presence: esophagitis presence not specified Qualified Code(s) : K21.9 - Gastro-esophageal reflux disease without esophagitis Assessment/Plan: CT of abdomen was unremarkable. Will treat for presumed GERD. Pt thinks he has a raw esophagus from 3 days of vomiting. (3) Nausea & vomiting Assessment/Plan: Resolved. - Current Meds Current Meds: Current Medications Generic Name Dose Route Start Last Admin Trade Name Freq PRN Reason Stop Dose Admin Al Hydroxide/Mg Hydroxide 30 ml 01/16/18 23:58 01/17/18 04:33 Mylanta Plus PO 30 ml Q4HR PRN Administration INDIGESTION Insulin Human Regular 100 unit 100 mls @ 6.9 mls/hr 01/17/18 09:10 01/18/18 12:00 / Sodium Chloride IV 1 unit/hr .[id number] SHAVON 1 mls/hr Protocol Titration 6.9 UNIT/HR Acetaminophen 100 mls @ 400 mls/hr 01/17/18 10:32 01/18/18 10:09 Ofirmev IV Infused Q6HR PRN Infusion PAIN Famotidine 50 mls @ 100 mls/hr 01/17/18 14:00 01/18/18 09:46 Pepcid 20 Mg/50 Ml IV Infused BID SHAVON Infusion Potassium Chloride/Dextrose/Sod Cl 1,000 mls @ 125 mls/hr 01/18/18 07:00 12:00 D5.45ns W/20 Meq Kcl IV 125 mls/hr .Q8H SHAVON Infusion Metoclopramide HCl 5 mg 01/17/18 08:49 01/18/18 03:49 Reglan Inj IVP 5 mg Q6HR PRN Administration Nausea / Vomiting Morphine Sulfate 2 mg 01/16/18 22:16 01/18/18 12:25 Morphine IVP 2 mg Q2H PRN Administration PAIN Multi-Ingredient Mouthwash/Gargle 30 ml 01/17/18 06:05 01/18/18 11:07 PO 30 ml Q4H PRN Administration INDIGESTION Nicotine 1 patch 01/16/18 23:00 01/18/18 07:56 Nicoderm TOP Not Given DAILY SHAVON Ondansetron HCl 4 mg 01/16/18 22:16 01/17/18 23:55 Zofran Inj IVP 4 mg Q4HR PRN Administration Nausea / Vomiting Pantoprazole Sodium 40 mg 01/17/18 21:00 01/18/18 09:07 Protonix IV 40 mg BID SHAVON Administration Sodium Chloride 10 ml 01/17/18 01:00 01/18/18 07:52 Normal Saline Flush 0.9% IVP 10 ml 0100,0900,1700 SHAVON Administration Sodium Chloride 10 ml 01/16/18 20:45 01/18/18 12:26 Normal Saline Flush 0.9% IVP 20 ml PRN PRN Administration NEEDED PER PROVIDER ORDERS Sodium Phosphate 250 mg 01/18/18 08:00 01/18/18 09:06 K-Phos Neutral PO 01/19/18 17:01 250 mg TIDWM SHAVON Administration Sucralfate 1 gm 01/17/18 09:00 01/18/18 12:16 Carafate PO 1 gm 0700,1100,1600,2200 SHAVON Administration - Lab Result Fish Bone Diagrams: 01/18/18 04:23 01/18/18 04:23 - Additional Planning My Orders: My Active Orders 01/17/18 14:00 Famotidine 20 mg/50 ml [Pepcid 20 mg/50 ml] 50 ml IV BID 01/17/18 21:00 Pantoprazole [Protonix] 40 mg IV BID 01/18/18 12:22 Benzocaine [Hurricaine] 1 sprays MM Q4HR PRN Subjective - Subjective Patient Reports: Feeling Better, Other (Pt can tolerate liquids, but doesn't want to try solids, worrying about esophageal burning pain.) Nursing Reports: Other (Morphine was ordered last night, today Pt is asking for Morphine over Ofirmev, even though he had less pain when dosed with Ofirmev.) Objective Vital Signs: Vital Signs - 24 hr 01/17/18 01/17/18 01/17/18 14:00 15:00 16:00 Temperature 37.3 C Heart Rate [ 109 H 108 H 112 H Monitoring electrodes] Respiratory 16 17 17 Rate Blood Pressure 101/64 110/76 108/84 H [Left Brachial artery] O2 Saturation 99 100 100 01/17/18 01/17/18 01/17/18 17:00 18:00 19:00 Temperature Heart Rate [ 108 H 108 H 113 H Monitoring electrodes] Respiratory 14 16 17 Rate Blood Pressure 112/75 97/69 130/87 H [Left Brachial artery] O2 Saturation 100 99 99 01/17/18 01/17/18 01/17/18 20:00 21:00 22:00 Temperature 37.7 C H Heart Rate [ 115 H 110 H 111 H Monitoring electrodes] Respiratory 16 16 16 Rate Blood Pressure 131/70 H 114/79 125/86 H [Left Brachial artery] O2 Saturation 98 98 99 01/17/18 01/18/18 01/18/18 23:00 00:00 01:00 Temperature 37.9 C H Heart Rate [ 113 H 107 H 104 H Monitoring electrodes] Respiratory 13 12 11 L Rate Blood Pressure 114/79 121/82 H 111/78 [Left Brachial artery] O2 Saturation 100 100 100 01/18/18 01/18/18 01/18/18 02:00 03:00 04:00 Temperature 37.3 C Heart Rate [ 106 H 104 H 101 H Monitoring electrodes] Respiratory 14 16 14 Rate Blood Pressure 120/76 117/74 115/81 H [Left Brachial artery] O2 Saturation 99 100 100 01/18/18 01/18/18 01/18/18 05:00 06:00 07:00 Temperature Heart Rate [ 100 96 109 H Monitoring electrodes] Respiratory 15 16 13 Rate Blood Pressure 102/71 114/80 131/93 H [Left Brachial artery] O2 Saturation 98 100 99 01/18/18 01/18/18 01/18/18 08:03 09:00 10:00 Temperature 97.2 C H Heart Rate [ 100 103 H 101 H Monitoring electrodes] Respiratory 17 14 17 Rate Blood Pressure 131/93 H 116/87 H 124/87 H [Left Brachial artery] O2 Saturation 100 100 99 01/18/18 01/18/18 01/18/18 11:00 11:53 13:00 Temperature Heart Rate [ 101 H 96 112 H Monitoring electrodes] Respiratory 11 L 13 20 Rate Blood Pressure 116/79 116/79 109/79 [Left Brachial artery] O2 Saturation 98 98 97 Oxygen O2 Source Room air I&O (Last 24 Hrs): Intake and Output Totals x24h 01/16/18 01/17/18 01/18/18 23:59 23:59 23:59 Intake Total 897.933 6322.385 3779.333 Output Total 650 2640 650 Balance -456.325 1946.385 3129.333 General: Alert, Oriented x3 HEENT: Mucous membr. moist/pink Neck: Supple, No JVD, +2 carotid pulse wo bruit Neuro: Non Focal Cardiovascular: Regular rate, No murmurs Respiratory: No respiratory distress Abdomen: Soft, Other (No guarding. Decreased bowel sounds) Extremities: No edema - Results Results: Laboratory Results WBC 10.4 x10^3/uL (4.8-10.8) 01/18/18 04:23 RBC 3.86 10^6/uL (4.70-6.10) L 01/18/18 04:23 Hgb 12.1 g/dL (14.0-18.0) L 01/18/18 04:23 Hct 35.3 % (42.0-52.0) L 01/18/18 04:23 MCV 91.6 fL (80.0-94.0) 01/18/18 04:23 MCH 31.3 pg (27.0-31.0) H 01/18/18 04:23 MCHC 34.2 g/dL (32.0-36.0) 01/18/18 04:23 RDW 13.4 % (12.0-15.0) 01/18/18 04:23 Plt Count 168 10^3/uL (130-450) 01/18/18 04:23 MPV 8.4 fL (7.4-11.4) 01/18/18 04:23 Neut # 7.2 10^3/uL (1.5-6.6) H 01/18/18 04:23 Lymph # 1.8 10^3/uL (1.5-3.5) 01/18/18 04:23 [place] # 1.3 10^3/uL (0.0-1.0) H 01/18/18 04:23 Eos # 0.0 10^3/uL (0.0-0.7) 01/18/18 04:23 Baso # 0.0 10^3/uL (0.0-0.1) 01/18/18 04: Absolute Nucleated RBC 0.00 x10^3/uL 01/18/18 04:23 Total Counted 100 01/16/18 19:02 Band Neuts % (Manual) 4 % (0-10) 01/16/18 19:02 Abnorm Lymph % (Manual) 0 % 01/16/18 19:02 Nucleated RBC % 0.0 /100WBC 01/18/18 04: Neutrophils # (Manual) 20.9 10^3/uL (1.5-6.6) H 01/16/18 19:02 Lymphocytes # (Manual) 0.2 10^3/uL (1.5-3.5) L 01/16/18 19:02 Monocytes # (Manual) 1.4 10^3/uL (0.0-1.0) H 01/16/18 19:02 Eosinophils # (Manual) 0.0 10^3/uL (0-0.7) 01/16/18 19:02 Basophils # (Manual) 0.0 10^3/uL (0-0.1) 01/16/18 19:02 Manual Slide Review Indicated 01/16/18 19:02 Platelet Estimate NORMAL (130-450,000) (NORMAL) 01/16/18 19:02 Platelet Morphology 1+ LARGE PLATELETS (NORMAL) 01/16/18 19:02 RBC Morph Micro Appear NORMAL APPEARANCE (NORMAL) 01/16/18 19:02 VBG pH 7.410 (7.31-7.41) 01/18/18 06:16 VBG pCO2 32.2 mmHg (41-51) L 01/17/18 10:04 VBG pO2 64.6 mmHg (25-47) H 01/17/18 10:04 VBG HCO3 15.2 mmol/L (23-28) L 01/17/18 10:04 VBG Total CO2 16.2 mmol/L (24-29) L 01/17/18 10:04 VBG O2 Saturation 92.2 % (60-80) H 01/17/18 10:04 VBG Base Excess -10.1 mmol/L (-2 - +2) L 01/17/18 10:04 Ionized Calcium 1.14 mmol/L (1.15-1.33) L 01/18/18 06:16 Sodium 135 mmol/L (135-145) 01/18/18 04:23 Potassium 3.7 mmol/L (3.5-5.0) 01/18/18 04:23 Chloride 104 mmol/L (101-111) 01/18/18 04:23 Carbon Dioxide 21 mmol/L (21-32) 01/18/18 04:23 Anion Gap 10.0 (6-13) 01/18/18 04:23 BUN 13 mg/dL (6-20) 01/18/18 04:23 Creatinine 0.7 mg/dL (0.6-1.2) 01/18/18 04:23 Estimated GFR (MDRD) 123 (>89) 01/18/18 04:23 Glucose 176 mg/dL (70-100) H 01/18/18 04:23 POC Whole Bld Glucose 233 mg/dL (70 - 100) H 01/18/18 13:03 Glycated Hemoglobin 12.3 % (4.6-6.2) H 01/17/18 04:25 Estim Average Glucose 306 (70-100) H 01/17/18 04:25 Lactic Acid 3.0 mmol/L (0.5-2.2) H* 01/16/18 21:50 Calcium 8.1 mg/dL (8.5-10.3) L 01/18/18 04:23 Phosphorus 2.1 mg/dL (2.5-4.6) L 01/18/18 04:23 Magnesium 2.1 mg/dL (1.7-2.8) 01/17/18 13:10 Total Bilirubin 2.0 mg/dL (0.2-1.0) H 01/16/18 19:02 AST 19 IU/L (10-42) 01/16/18 19:02 ALT 20 IU/L (10-60) 01/16/18 19:02 Alkaline Phosphatase 109 IU/L (42-121) 01/16/18 19:02 Lactate Dehydrogenase 140 IU/L (91-225) 01/17/18 04:25 Troponin I < 0.04 ng/mL (<0.49) 01/17/18 20:04 Total Protein 8.4 g/dL (6.7-8.2) H 01/16/18 19:02 Albumin 5.0 g/dL (3.2-5.5) 01/16/18 19:02 Globulin 3.4 g/dL (2.1-4.2) 01/16/18 19:02 Albumin/Globulin Ratio 1.5 (1.0-2.2) 01/16/18 19:02 Triglycerides 106 mg/dL (-149) 01/17/18 08:12 Cholesterol 200 mg/dL (-199) H 01/17/18 08:12 LDL Cholesterol, Calc 134 mg/dL (-129) H 01/17/18 08:12 VLDL Cholesterol 21 mg/dL 01/17/18 08:12 HDL Cholesterol 45 mg/dL (60-) L 01/17/18 08:12 LDL/HDL Ratio 3.0 (<3.6) 01/17/18 08:12 Cholesterol/HDL Ratio 4.4 (<5.0) 01/17/18 08:12 Lipase 159 U/L (22-51) H 01/16/18 19:02 Urine Color LT. YELLOW 01/16/18 20:33 Urine Clarity CLEAR (CLEAR) 01/16/18 20:33 Urine pH 5.5 PH (5.0-7.5) 01/16/18 20:33 Ur Specific [place] 1.020 (1.002-1.030) 01/16/18 20:33 Urine Protein NEGATIVE mg/dL (NEGATIVE) 01/16/18 20:33 Urine Glucose (UA) >=1000 mg/dL (NEGATIVE) H 01/16/18 20:33 Urine Ketones >=80 mg/dL (NEGATIVE) H 01/16/18 20:33 Urine Occult Blood TRACE-LYSE (NEGATIVE) 01/16/18 20:33 Urine Nitrite NEGATIVE (NEGATIVE) 01/16/18 20:33 Urine Bilirubin NEGATIVE (NEGATIVE) 01/16/18 20:33 Urine Urobilinogen 0.2 (NORMAL) E.U./dL (NORMAL) 01/16/18 20:33 Ur Leukocyte Esterase NEGATIVE (NEGATIVE) 01/16/18 20:33 Ur Microscopic Review NOT INDICATED 01/16/18 20:33 Urine Culture Comments NOT INDICATED 01/16/18 20:33 Serum Ketones MODERATE (NEGATIVE) H 01/18/18 04:23
[2018-01-18] MEDS ORDERED: MORPHINE 2 MG/ML SYRINGE IVP PRN (13:30)
[2018-01-18] MEDS ORDERED: INSULIN GLARGINE 300 UNIT/3 ML PEN SUBQ SCH (19:00)
[2018-01-18] MEDS: INSULIN ASPART 300 UNIT/3 ML PEN SUBQ SCH (21:31)
[2018-01-19] MEDS ORDERED: INSULIN REGULAR HUMAN 100 UNIT/1 ML 10 ML MDV SUBQ SCH (00:17)
[2018-01-19] MEDS: D5.45NS W/20 MEQ KCL 1,000 ML IV SCH ×3 (00:33→17:23)
[2018-01-19] MEDS: GI COCKTAIL 120 ML BOTTLE PO PRN ×4 (00:34→22:13)
[2018-01-19 04:48] LABS: BUN - BLOOD UREA NITROGEN 11 mg/dL (6-20); CALCIUM 8.2 mg/dL (8.5-10.3); CARBON DIOXIDE - CO2 24 mmol/L (21-32); CHLORIDE 105 mmol/L (101-111); CREATININE 0.7 mg/dL (0.6-1.2); GFR - MDRD 123 (>89); GLUCOSE 213 mg/dL (70-100); SODIUM 135 mmol/L (135-145)
[2018-01-19 05:08] LABS: KETONES, SERUM (ACETEST) NEGATIVE (NEGATIVE)
[2018-01-19] MEDS: SUCRALFATE 1 GM/10 ML UDC PO SCH ×4 (06:14→21:03)
[2018-01-19] MEDS: NEUTRA-PHOS 250 MG TABLET PO SCH ×3 (08:17→17:39)
[2018-01-19] MEDS: INSULIN ASPART 300 UNIT/3 ML PEN SUBQ SCH ×4 (08:21→20:53)
[2018-01-19] MEDS: ONDANSETRON 4 MG/2 ML VIAL IVP PRN (08:25)
[2018-01-19] MEDS: FAMOTIDINE IV 20 MG/50 ML IV SCH ×2 (08:26→20:51)
[2018-01-19] MEDS: SODIUM CHLORIDE FLUSH 0.9% 10 ML SYRINGE IVP SCH ×2 (08:30→17:17)
[2018-01-19] MEDS: ACETAMINOPHEN 1,000 MG/100 ML 100 ML IV PRN ×2 (08:56→16:15)
[2018-01-19] MEDS: NICOTINE 21 MG PATCH TOP SCH (09:01)
[2018-01-19] MEDS: PANTOPRAZOLE 40 MG VIAL IV SCH ×2 (09:52→20:59)
[2018-01-19] MEDS: METOCLOPRAMIDE 10 MG/2 ML VIAL IVP PRN (12:00)
[2018-01-19] MEDS: SODIUM CHLORIDE FLUSH 0.9% 10 ML SYRINGE IVP PRN (16:18)
--- NOTE | 2018-01-19 18:02 | PROVIDER PROGRESS NOTE ---
Assessment/Plan - Problem List (1) Diabetic ketoacidosis Qualifiers: Diabetes mellitus type: type 2 Diabetes mellitus complication detail: without coma Qualified Code(s): E11.10 - Type 2 diabetes mellitus with ketoacidosis without coma Assessment/Plan: Patient weaned off insulin drip yesterday and now on lantus 5 units and SS insulin Patient BG is in the 200s today He is not eating much secondary to #2 We will increase lantus slowly to 10 units tonight Monitor BG and adjust lantus (2) GERD (gastroesophageal reflux disease) Qualifiers: Esophagitis presence: esophagitis presence not specified Qualified Code(s) : K21.9 - Gastro-esophageal reflux disease without esophagitis Assessment/Plan: CT of abdomen was unremarkable. Will treat for presumed GERD. Pt thinks he has a raw esophagus from 3 days of vomiting. Patient continues to have burning in his esophagus as well as his stomach We will continue GI cocktail, PPI, carafate and antiemetics Monitor (3) Nausea & vomiting Assessment/Plan: Resolved. - Current Meds Current Meds: Current Medications Generic Name Dose Route Start Last Admin Trade Name Freq PRN Reason Stop Dose Admin Al Hydroxide/Mg Hydroxide 30 ml 01/16/18 23:58 01/17/18 04:33 Mylanta Plus PO 30 ml Q4HR PRN Administration INDIGESTION Benzocaine 1 sprays 01/18/18 12:22 01/18/18 14:51 Hurricaine MM 1 sprays Q4HR PRN Administration Mouth Sore Pain Acetaminophen 100 mls @ 400 mls/hr 01/17/18 10:32 01/19/18 16:36 Ofirmev IV Infused Q6HR PRN Infusion PAIN Famotidine 50 mls @ 100 mls/hr 01/17/18 14:00 01/19/18 09:00 Pepcid 20 Mg/50 Ml IV Infused BID SHAVON Infusion Potassium Chloride/Dextrose/Sod Cl 1,000 mls @ 125 mls/hr 01/18/18 07:00 10/08 17:23 D5.45ns W/20 Meq Kcl IV 125 mls/hr .Q8H SHAVON Administration Insulin Aspart 1 - 9 unit 01/19/18 17:00 01/19/18 17:41 Novolog SUBQ 7 unit 0800,1200,1700,2100 SHAVON Administration Protocol Metoclopramide HCl 5 mg 01/17/18 08:49 01/19/18 12:00 Reglan Inj IVP 5 mg Q6HR PRN Administration Nausea / Vomiting Multi-Ingredient Mouthwash/Gargle 30 ml 01/17/18 06:05 01/19/18 12:00 PO 30 ml Q4H PRN Administration INDIGESTION Nicotine 1 patch 01/16/18 23:00 01/19/18 09:01 Nicoderm TOP Not Given DAILY SHAVON Ondansetron HCl 4 mg 01/16/18 22:16 01/19/18 08:25 Zofran Inj IVP 4 mg Q4HR PRN Administration Nausea / Vomiting Pantoprazole Sodium 40 mg 01/17/18 21:00 01/19/18 09:52 Protonix IV 40 mg BID SHAVON Administration Sodium Chloride 10 ml 01/17/18 01:00 01/19/18 17:17 Normal Saline Flush 0.9% IVP Not Given 0100,0900,1700 SHAVON Sodium Chloride 10 ml 01/16/18 20:45 01/19/18 16:18 Normal Saline Flush 0.9% IVP 10 ml PRN PRN Administration NEEDED PER PROVIDER ORDERS Sucralfate 1 gm 01/17/18 09:00 01/19/18 16:11 Carafate PO 1 gm 0700,1100,1600,2200 SHAVON Administration - Lab Result Lab results reviewed: Yes Fish Bone Diagrams: 01/18/18 04:23 01/19/18 04:12 - Diagnostic Imaging Results Diagnostic Imaging Results: Final report reviewed - Additional Planning Condition/Complexity: Improved My Orders: My Active Orders 01/19/18 17:00 Insulin Aspart [NovoLOG] 1 - 9 unit SUBQ 0800,1200,1700,2100 01/19/18 21:00 Insulin Glargine [Lantus Solostar] 10 unit SUBQ QPM 01/19/18 Dinner Carb-controlled Diet [DIET] Plan Discussed with:: Patient, Spouse Time Spent: 31-60 minutes Subjective - Subjective Patient Reports: Abdominal Pain (Burning sensation and GERD, severe at times), Fatigue, Heartburn Nursing Reports: No Complaints Objective Vital Signs: Vital Signs - 24 hr 01/18/18 01/18/18 01/18/18 18:00 19:00 20:00 Temperature Heart Rate [ 100 95 95 Monitoring electrodes] Respiratory 15 15 12 Rate Blood Pressure 109/83 H 100/79 118/91 H [Left Brachial artery] O2 Saturation 98 98 99 01/18/18 01/18/18 01/18/18 21:00 22:00 23:00 Temperature 37.2 C Heart Rate [ 98 96 92 Monitoring electrodes] Respiratory 21 14 17 Rate Blood Pressure 107/79 112/82 H 115/86 H [Left Brachial artery] O2 Saturation 96 98 98 01/19/18 01/19/18 01/19/18 00:00 01:00 02:00 Temperature Heart Rate [ 101 H 99 92 Monitoring electrodes] Respiratory 16 20 16 Rate Blood Pressure 116/81 H 116/84 H 105/79 [Left Brachial artery] O2 Saturation 97 100 96 01/19/18 01/19/18 01/19/18 03:00 04:00 05:00 Temperature 36.8 C Heart Rate [ 86 84 90 Monitoring electrodes] Respiratory 16 16 15 Rate Blood Pressure 114/87 H 113/82 H 94/71 [Left Brachial artery] O2 Saturation 96 97 95 01/19/18 01/19/18 01/19/18 06:00 07:00 08:00 Temperature Heart Rate [ 85 87 95 Monitoring electrodes] Respiratory 14 17 Rate Blood Pressure 114/91 H 123/92 H [Left Brachial artery] O2 Saturation 96 93 01/19/18 01/19/18 01/19/18 09:00 10:00 11:00 Temperature Heart Rate [ 86 89 82 Monitoring electrodes] Respiratory 10 L 21 12 Rate Blood Pressure 123/90 H 124/93 H 132/98 H [Left Brachial artery] O2 Saturation 96 95 96 01/19/18 01/19/18 01/19/18 12:00 13:00 14:00 Temperature 37.0 C Heart Rate [ 90 100 92 Monitoring electrodes] Respiratory 15 19 17 Rate Blood Pressure 139/103 H 130/88 H 125/95 H [Left Brachial artery] O2 Saturation 100 95 94 01/19/18 01/19/18 15:00 16:00 Temperature Heart Rate [ 83 90 Monitoring electrodes] Respiratory 15 10 L Rate Blood Pressure 137/97 H 135/96 H [Left Brachial artery] O2 Saturation 97 96 Oxygen O2 Source Room air I&O (Last 24 Hrs): Intake and Output Totals x24h 01/17/18 01/18/18 01/19/18 23:59 23:59 23:59 Intake Total 5064.385 6144.084 3607.500 Output Total 2640 1200 1040 Balance 2424.385 4944.084 2567.500 General: Alert, Oriented x3, Mild distress (ill appearing in pain) HEENT: Atraumatic, PERRLA, EOMI, Other (dry mucus membranes) Neck: Supple, No JVD, No thyromegaly, +2 carotid pulse wo bruit, No LAD Lymphatic: no adenopathy Neuro: Alert, Non Focal, CN 2-12 Grossly Intact, Oriented Times 3 Cardiovascular: Regular rate, Normal S1, Normal S2, No murmurs Respiratory: Chest non-tender, No respiratory distress, Breath sounds nml Abdomen: Normal bowel sounds, Soft, No tenderness, No hepatospenomegaly Extremities: No clubbing, No cyanosis, No edema, Normal pulses Skin: No rashes, No breakdown - Results Results: Laboratory Results WBC 10.4 x10^3/uL (4.8-10.8) 01/18/18 04:23 RBC 3.86 10^6/uL (4.70-6.10) L 01/18/18 04:23 Hgb 12.1 g/dL (14.0-18.0) L 01/18/18 04:23 Hct 35.3 % (42.0-52.0) L 01/18/18 04:23 MCV 91.6 fL (80.0-94.0) 01/18/18 04:23 MCH 31.3 pg (27.0-31.0) H 01/18/18 04:23 MCHC 34.2 g/dL (32.0-36.0) 01/18/18 04:23 RDW 13.4 % (12.0-15.0) 01/18/18 04:23 Plt Count 168 10^3/uL (130-450) 01/18/18 04:23 MPV 8.4 fL (7.4-11.4) 01/18/18 04:23 Neut # 7.2 10^3/uL (1.5-6.6) H 01/18/18 04:23 Lymph # 1.8 10^3/uL (1.5-3.5) 01/18/18 04:23 [place] # 1.3 10^3/uL (0.0-1.0) H 01/18/18 04:23 Eos # 0.0 10^3/uL (0.0-0.7) 01/18/18 04:23 Baso # 0.0 10^3/uL (0.0-0.1) 01/18/18 04:23 Absolute Nucleated RBC 0.00 x10^3/uL 01/18/18 04:23 Total Counted 100 01/16/18 19:02 Band Neuts % (Manual) 4 % (0-10) 01/16/18 19:02 Abnorm Lymph % (Manual) 0 % 01/16/18 19:02 Nucleated RBC % 0.0 /100WBC 01/18/18 04: Neutrophils # (Manual) 20.9 10^3/uL (1.5-6.6) H 01/16/18 19:02 Lymphocytes # (Manual) 0.2 10^3/uL (1.5-3.5) L 01/16/18 19:02 Monocytes # (Manual) 1.4 10^3/uL (0.0-1.0) H 01/16/18 19:02 Eosinophils # (Manual) 0.0 10^3/uL (0-0.7) 01/16/18 19:02 Basophils # (Manual) 0.0 10^3/uL (0-0.1) 01/16/18 19:02 Manual Slide Review Indicated 01/16/18 19:02 Platelet Estimate NORMAL (130-450,000) (NORMAL) 01/16/18 19:02 Platelet Morphology 1+ LARGE PLATELETS (NORMAL) 01/16/18 19:02 RBC Morph Micro Appear NORMAL APPEARANCE (NORMAL) 01/16/18 19:02 VBG pH 7.410 (7.31-7.41) 01/18/18 06:16 VBG pCO2 32.2 mmHg (41-51) L 01/17/18 10:04 VBG pO2 64.6 mmHg (25-47) H 01/17/18 10:04 VBG HCO3 15.2 mmol/L (23-28) L 01/17/18 10:04 VBG Total CO2 16.2 mmol/L (24-29) L 01/17/18 10:04 VBG O2 Saturation 92.2 % (60-80) H 01/17/18 10:04 VBG Base Excess -10.1 mmol/L (-2 - +2) L 01/17/18 10:04 Ionized Calcium 1.14 mmol/L (1.15-1.33) L 01/18/18 06:16 Sodium 135 mmol/L (135-145) 01/19/18 04:12 Potassium 3.6 mmol/L (3.5-5.0) 01/19/18 04:12 Chloride 105 mmol/L (101-111) 01/19/18 04:12 Carbon Dioxide 24 mmol/L (21-32) 01/19/18 04:12 Anion Gap 6.0 (6-13) 01/19/18 04:12 BUN 11 mg/dL (6-20) 01/19/18 04:12 Creatinine 0.7 mg/dL (0.6-1.2) 01/19/18 04:12 Estimated GFR (MDRD) 123 (>89) 01/19/18 04:12 Glucose 213 mg/dL (70-100) H 01/19/18 04:12 POC Whole Bld Glucose 174 mg/dL (70 - 100) H 01/19/18 05:12 Glycated Hemoglobin 12.3 % (4.6-6.2) H 01/17/18 04:25 Estim Average Glucose 306 (70-100) H 01/17/18 04:25 Lactic Acid 3.0 mmol/L (0.5-2.2) H* 01/16/18 21:50 Calcium 8.2 mg/dL (8.5-10.3) L 01/19/18 04:12 Phosphorus 2.1 mg/dL (2.5-4.6) L 01/18/18 04:23 Magnesium 1.6 mg/dL (1.7-2.8) L 01/19/18 07:43 Total Bilirubin 2.0 mg/dL (0.2-1.0) H 01/16/18 19:02 AST 19 IU/L (10-42) 01/16/18 19:02 ALT 20 IU/L (10-60) 01/16/18 19:02 Alkaline Phosphatase 109 IU/L (42-121) 01/16/18 19:02 Lactate Dehydrogenase 140 IU/L (91-225) 01/17/18 04:25 Troponin I < 0.04 ng/mL (<0.49) 01/17/18 20:04 Total Protein 8.4 g/dL (6.7-8.2) H 01/16/18 19:02 Albumin 5.0 g/dL (3.2-5.5) 01/16/18 19:02 Globulin 3.4 g/dL (2.1-4.2) 01/16/18 19:02 Albumin/Globulin Ratio 1.5 (1.0-2.2) 01/16/18 19:02 Triglycerides 106 mg/dL (-149) 01/17/18 08:12 Cholesterol 200 mg/dL (-199) H 01/17/18 08:12 LDL Cholesterol, Calc 134 mg/dL (-129) H 01/17/18 08:12 VLDL Cholesterol 21 mg/dL 01/17/18 08:12 HDL Cholesterol 45 mg/dL (60-) L 01/17/18 08:12 LDL/HDL Ratio 3.0 (<3.6) 01/17/18 08:12 Cholesterol/HDL Ratio 4.4 (<5.0) 01/17/18 08:12 Lipase 159 U/L (22-51) H 01/16/18 19:02 Urine Color LT. YELLOW 01/16/18 20:33 Urine Clarity CLEAR (CLEAR) 01/16/18 20:33 Urine pH 5.5 PH (5.0-7.5) 01/16/18 20:33 Ur Specific [place] 1.020 (1.002-1.030) 01/16/18 20:33 Urine Protein NEGATIVE mg/dL (NEGATIVE) 01/16/18 20:33 Urine Glucose (UA) >=1000 mg/dL (NEGATIVE) H 01/16/18 20:33 Urine Ketones >=80 mg/dL (NEGATIVE) H 01/16/18 20:33 Urine Occult Blood TRACE-LYSE (NEGATIVE) 01/16/18 20:33 Urine Nitrite NEGATIVE (NEGATIVE) 01/16/18 20:33 Urine Bilirubin NEGATIVE (NEGATIVE) 01/16/18 20:33 Urine Urobilinogen 0.2 (NORMAL) E.U./dL (NORMAL) 01/16/18 20:33 Ur Leukocyte Esterase NEGATIVE (NEGATIVE) 01/16/18 20:33 Ur Microscopic Review NOT INDICATED 01/16/18 20:33 Urine Culture Comments NOT INDICATED 01/16/18 20:33 Serum Ketones NEGATIVE (NEGATIVE) 01/19/18 04:12
[2018-01-19] MEDS ORDERED: INSULIN GLARGINE 300 UNIT/3 ML PEN SUBQ SCH (21:00)
[2018-01-20] MEDS: SODIUM CHLORIDE FLUSH 0.9% 10 ML SYRINGE IVP SCH ×2 (00:01→08:39)
[2018-01-20] MEDS: D5.45NS W/20 MEQ KCL 1,000 ML IV SCH (01:46)
[2018-01-20 04:44] LABS: CALCIUM 8.1 mg/dL (8.5-10.3); CREATININE 0.7 mg/dL (0.6-1.2); PHOSPHORUS 2.8 mg/dL (2.5-4.6)
[2018-01-20] MEDS: ACETAMINOPHEN 1,000 MG/100 ML 100 ML IV PRN ×2 (06:27)
[2018-01-20] MEDS: SUCRALFATE 1 GM/10 ML UDC PO SCH (06:27)
[2018-01-20] MEDS ORDERED: metFORMIN 500 MG TABLET PO SCH (08:00)
[2018-01-20] MEDS ORDERED: INSULIN ASPART 300 UNIT/3 ML PEN SUBQ SCH (08:06)
[2018-01-20 09:09] VITALS: BP 137/96
[2018-01-20] MEDS: FAMOTIDINE IV 20 MG/50 ML IV SCH (09:09)
[2018-01-20] MEDS: PANTOPRAZOLE 40 MG VIAL IV SCH (09:09)
[2018-01-20] MEDS: SODIUM CHLORIDE FLUSH 0.9% 10 ML SYRINGE IVP PRN (09:09)
[2018-01-20] MEDS: NICOTINE 21 MG PATCH TOP SCH (09:10)
--- NOTE | 2018-01-20 09:30 | Discharge Plan ---
Discharge Plan Disposition: Home, Self Care Condition: Fair Prescriptions: Blood Sugar Diagnostic [Glucometer Strips] 1 each MC QID #120 strip Insulin Glargine [Lantus Solostar] 12 unit SUBQ QPM #1 pen Lidocaine HCl [Lidocaine HCl Viscous] 15 ml MM ACHS #1 bottle metFORMIN [Glucophage] 500 mg PO BIDWM #60 tablet [place], Disposable [Needle] 1 each MC DAILY #30 dis.needle Omeprazole [PriLOSEC] 20 mg PO DAILY #30 capsule Sucralfate [Carafate] 1 gm PO ACHS #1 bottle Diet: Diabetic Activity Restrictions: No Restrictions Shower Restrictions: No Driving Restrictions: No Weight Bearing: Full Weight Instruction Topics: Diabetes Aml Analyst Complications, Hyperglycemia, Diabetic Ketoacidosis Additional Instructions or Follow Up instructions: You presented to the emergency department with 3 days of intractable nausea and vomiting. You were found to have diabetic ketoacidosis. He had to be admitted to our intensive care unit and placed on an insulin drip. You have now recovered from DKA but will need to continue on insulin for your diabetes. We have prescribed you insulin, needles and metformin which she will need to take daily. I need to follow-up with the primary care physician within the next week. You also were having some acid reflux for which I have prescribed you a medication called Prilosec along with Carafate and lidocaine. This may bother you for the next week or so I believe it is due to your excessive amount of vomiting and retching that you underwent prior to hospitalization. He will need to follow-up with diabetic education at the [facility]. I would like you to keep a log of your blood sugars for the next several days until you go see her primary care physician. You may need further adjustment on her insulin doses. Follow-Up Care: [facility] - Diabetes Ed No Smoking: If you smoke, Please STOP! Call for help.
--- NOTE | 2018-01-20 14:38 | DISCHARGE SUMMARY ---
Discharge Summary Admit Date: 01/16/18 Discharge Date: 01/20/18 Discharging Provider: Sung Tolliver MD Primary Care Provider: [facility] Code Status: Attempt Resuscitation Condition at Discharge: Fair Discharge Disposition: 01 Home, Self Care - DIAGNOSES Admission Diagnoses: 1. Diabetic ketoacidosis Discharge Diagnoses with Status of Each Condition: 1. Diabetic ketoacidosis: Resolved 2. Increased anion gap metabolic acidosis: Resolved 3. Acute kidney injury: Resolved 4. Hyponatremia: Resolved 5. GERD: Stable 6. Intractable nausea vomiting: Resolved - HPI History of Present Illness: Mr. Luis Gunderson is a pleasant 42-year-old gentleman who has been having nausea and vomiting for 3 days. He says he typically drinks a lot of fluids but has been drinking much more and has also been experiencing increasing weakness. Patient relates that he has a history of type 2 diabetes mellitus and while in the was taking 20 units of insulin daily. He also notes that 2 years ago, when he retired from the , he simply just stopped taking anything for his diabetes. He gives no reason why, other than he just did not feel like taking anything any longer. Upon presentation to the emergency department patient was found to be in diabetic ketoacidosis with an blood glucose level greater than 1000, severe acidosis, and severe hyponatremia/hypochloremia.He will be admitted to the intensive care unit and placed on diabetic ketoacidosis protocol. - HOSPITAL COURSE Hospital Course: The patient was admitted to the intensive care unit for diabetic ketoacidosis secondary to noncompliance with medications. The patient was not found to have any other source of DKA such as infection or SC. The patient was treated in the intensive care unit on an insulin drip given the severity of his DKA it took just over 2 days to wean him off of the insulin drip. The patient was given IV fluids as he was severely dehydrated on presentation and had acute kidney injury. The patient's acute kidney injury resolved and his dehydration improved throughout the hospitalization. The patient was then started on subQ insulin with Lantus 5 units. Over the course of the next day the patient's Lantus was weaned up to 12 units. The patient was discharged home on 12 units of Lantus. The patient was given prescription for insulin pen as well as for needles. The patient was also given glucometer strips he stated that he still had a glucometer at home. The patient was given counseling on the need to be compliant with his insulin going forward. The patient was also prescribed metformin to take with meals. While the patient was hospitalized he did have significant amount of GERD and gastritis. The patient was started on Prilosec, Carafate and viscous lidocaine for his symptoms. The patient was instructed to follow-up with his physician at the [facility]. He was instructed to check his blood glucose at home 4 times a day and take the log to his physician. The patient was also enrolled for diabetic education. - ALLERGIES Allergies/Adverse Reactions: Allergies Allergy/AdvReac Type Severity Reaction Status Date / Time No Known Drug Allergies Allergy Verified 03/03/13 18:50 - MEDICATIONS Home Medications: Ambulatory Orders Medication Instructions Recorded Confirmed Blood Sugar Diagnostic [Glucometer 1 each MC QID #120 strip 01/20/18 Strips] Insulin Glargine [Lantus Solostar] 12 unit SUBQ QPM #1 pen 01/20/18 Lidocaine HCl [Lidocaine HCl 15 ml MM ACHS #1 bottle 01/20/18 Viscous] [place], Disposable [Needle] 1 each MC DAILY #30 dis.needle 01/20/18 Omeprazole [PriLOSEC] 20 mg PO DAILY #30 capsule 01/20/18 Sucralfate [Carafate] 1 gm PO ACHS #1 bottle 01/20/18 metFORMIN [Glucophage] 500 mg PO BIDWM #60 tablet 01/20/18 - PHYSICAL EXAM AT DISCHARGE General Appearance: positive: No acute distress, Alert Eyes Bilateral: positive: Normal inspection, PERRL, EOMI, No lid inflammation, Conjunctivae nml, No scleral icterus ENT: positive: ENT inspection nml, Pharynx nml, No signs of dehydration. negative: Purulent nasal drainage, Pharyngeal erythema, Oral lesions Neck: positive: Nml inspection, Thyroid nml, No JVD, Trachea midline. negative : Thyromegaly, Lymphadenopathy (R), Lymphadenopathy (L), Carotid bruit, Tracheal deviation Respiratory: positive: Chest non-tender, No respiratory distress, Breath sounds nml. negative: Wheezes, Rales, Rhonchi Cardiovascular: positive: Regular rate & rhythm, No murmur, No gallop Peripheral Pulses: positive: 2+ Abdomen: positive: Non-tender, No organomegaly, Nml bowel sounds, No distention. negative: Guarding, Rebound, Hepatomegaly Back: positive: Nml inspection. negative: CVA tenderness (R), CVA tenderness (L ) Skin: positive: Color nml, No rash, Warm. negative: Diaphoresis, Pallor, Skin rash Extremities: positive: Non-tender, Full ROM, Nml appearance, No pedal edema Neurologic/Psychiatric: positive: Oriented x3, CN's nml (2-12), Motor nml, Sensation nml, Mood/affect nml - LABS Result Diagrams: 01/18/18 04:23 01/20/18 04:10 Other Lab Results: Laboratory Results WBC 10.4 x10^3/uL (4.8-10.8) 01/18/18 04:23 RBC 3.86 10^6/uL (4.70-6.10) L 01/18/18 04:23 Hgb 12.1 g/dL (14.0-18.0) L 01/18/18 04:23 Hct 35.3 % (42.0-52.0) L 01/18/18 04:23 MCV 91.6 fL (80.0-94.0) 01/18/18 04:23 MCH 31.3 pg (27.0-31.0) H 01/18/18 04:23 MCHC 34.2 g/dL (32.0-36.0) 01/18/18 04:23 RDW 13.4 % (12.0-15.0) 01/18/18 04:23 Plt Count 168 10^3/uL (130-450) 01/18/18 04:23 MPV 8.4 fL (7.4-11.4) 01/18/18 04:23 Neut # 7.2 10^3/uL (1.5-6.6) H 01/18/18 04:23 Lymph # 1.8 10^3/uL (1.5-3.5) 01/18/18 04:23 [place] # 1.3 10^3/uL (0.0-1.0) H 01/18/18 04:23 Eos # 0.0 10^3/uL (0.0-0.7) 01/18/18 04:23 Baso # 0.0 10^3/uL (0.0-0.1) 01/18/18 04:23 Absolute Nucleated RBC 0.00 x10^3/uL 01/18/18 04:23 Total Counted 100 01/16/18 19:02 Band Neuts % (Manual) 4 % (0-10) 01/16/18 19:02 Abnorm Lymph % (Manual) 0 % 01/16/18 19:02 Nucleated RBC % 0.0 /100WBC 01/18/18 04:23 Neutrophils # (Manual) 20.9 10^3/uL (1.5-6.6) H 01/16/18 19:02 Lymphocytes # (Manual) 0.2 10^3/uL (1.5-3.5) L 01/16/18 19:02 Monocytes # (Manual) 1.4 10^3/uL (0.0-1.0) H 01/16/18 19:02 Eosinophils # (Manual) 0.0 10^3/uL (0-0.7) 01/16/18 19:02 Basophils # (Manual) 0.0 10^3/uL (0-0.1) 01/16/18 19:02 Manual Slide Review Indicated 01/16/18 19:02 Platelet Estimate NORMAL (130-450,000) (NORMAL) 01/16/18 19:02 Platelet Morphology 1+ LARGE PLATELETS (NORMAL) 01/16/18 19:02 RBC Morph Micro Appear NORMAL APPEARANCE (NORMAL) 01/16/18 19:02 VBG pH 7.410 (7.31-7.41) 01/18/18 06:16 VBG pCO2 32.2 mmHg (41-51) L 01/17/18 10:04 VBG pO2 64.6 mmHg (25-47) H 01/17/18 10:04 VBG HCO3 15.2 mmol/L (23-28) L 01/17/18 10:04 VBG Total CO2 16.2 mmol/L (24-29) L 01/17/18 10:04 VBG O2 Saturation 92.2 % (60-80) H 01/17/18 10:04 VBG Base Excess -10.1 mmol/L (-2 - +2) L 01/17/18 10:04 Ionized Calcium 1.14 mmol/L (1.15-1.33) L 01/18/18 06:16 Sodium 134 mmol/L (135-145) L 01/20/18 04:10 Potassium 3.5 mmol/L (3.5-5.0) 01/20/18 04:10 Chloride 102 mmol/L (101-111) 01/20/18 04:10 Carbon Dioxide 26 mmol/L (21-32) 01/20/18 04:10 Anion Gap 6.0 (6-13) 01/20/18 04:10 BUN 7 mg/dL (6-20) 01/20/18 04:10 Creatinine 0.7 mg/dL (0.6-1.2) 01/20/18 04:10 Estimated GFR (MDRD) 123 (>89) 01/20/18 04:10 Glucose 212 mg/dL (70-100) H 01/20/18 04:10 POC Whole Bld Glucose 203 mg/dL (70 - 100) H 01/20/18 08:04 Glycated Hemoglobin 12.3 % (4.6-6.2) H 01/17/18 04:25 Estim Average Glucose 306 (70-100) H 01/17/18 04:25 Lactic Acid 3.0 mmol/L (0.5-2.2) H* 01/16/18 21:50 Calcium 8.1 mg/dL (8.5-10.3) L 01/20/18 04:10 Phosphorus 2.8 mg/dL (2.5-4.6) 01/20/18 04:10 Magnesium 1.6 mg/dL (1.7-2.8) L 01/19/18 07:43 Total Bilirubin 2.0 mg/dL (0.2-1.0) H 01/16/18 19:02 AST 19 IU/L (10-42) 01/16/18 19:02 ALT 20 IU/L (10-60) 01/16/18 19:02 Alkaline Phosphatase 109 IU/L (42-121) 01/16/18 19:02 Lactate Dehydrogenase 140 IU/L (91-225) 01/17/18 04:25 Troponin I < 0.04 ng/mL (<0.49) 01/17/18 20:04 Total Protein 8.4 g/dL (6.7-8.2) H 01/16/18 19:02 Albumin 5.0 g/dL (3.2-5.5) 01/16/18 19:02 Globulin 3.4 g/dL (2.1-4.2) 01/16/18 19:02 Albumin/Globulin Ratio 1.5 (1.0-2.2) 01/16/18 19:02 Triglycerides 106 mg/dL (-149) 01/17/18 08:12 Cholesterol 200 mg/dL (-199) H 01/17/18 08:12 LDL Cholesterol, Calc 134 mg/dL (-129) H 01/17/18 08:12 VLDL Cholesterol 21 mg/dL 01/17/18 08:12 HDL Cholesterol 45 mg/dL (60-) L 01/17/18 08:12 LDL/HDL Ratio 3.0 (<3.6) 01/17/18 08:12 Cholesterol/HDL Ratio 4.4 (<5.0) 01/17/18 08:12 Lipase 159 U/L (22-51) H 01/16/18 19:02 Urine Color LT. YELLOW 01/16/18 20:33 Urine Clarity CLEAR (CLEAR) 01/16/18 20:33 Urine pH 5.5 PH (5.0-7.5) 01/16/18 20:33 Ur Specific [place] 1.020 (1.002-1.030) 01/16/18 20:33 Urine Protein NEGATIVE mg/dL (NEGATIVE) 01/16/18 20:33 Urine Glucose (UA) >=1000 mg/dL (NEGATIVE) H 01/16/18 20:33 Urine Ketones >=80 mg/dL (NEGATIVE) H 01/16/18 20:33 Urine Occult Blood TRACE-LYSE (NEGATIVE) 01/16/18 20:33 Urine Nitrite NEGATIVE (NEGATIVE) 01/16/18 20:33 Urine Bilirubin NEGATIVE (NEGATIVE) 01/16/18 20:33 Urine Urobilinogen 0.2 (NORMAL) E.U./dL (NORMAL) 01/16/18 20:33 Ur Leukocyte Esterase NEGATIVE (NEGATIVE) 01/16/18 20:33 Ur Microscopic Review NOT INDICATED 01/16/18 20:33 Urine Culture Comments NOT INDICATED 01/16/18 20:33 Serum Ketones NEGATIVE (NEGATIVE) 01/19/18 04:12 - DIAGNOSTIC IMAGING Diagnostic Imaging Results: Final report reviewed Diagnostic Imaging Results Comments: CT abdomen Impression: 1. No definite acute abnormality of the abdomen 2. Bilateral nonobstructing renal calculi 3. Probable incidental right renal cyst. - FOLLOW UP Follow Up: Patient was discharged home after recovering from diabetic ketoacidosis. The patient was started on Lantus which she has been off of for over 2 years. He was started on 12 units daily along with metformin twice a day with meals. The patient will check his blood glucose at home and keep a log. The patient has been instructed to follow-up with his primary care early next week. He will need further diabetic education and will need close follow-up and adjustment of his insulin to get his hemoglobin A1c down to goal. - TIME SPENT Time Spent in Discharge (Minutes): 40
[2018-01-20] MEDS ORDERED: INSULIN GLARGINE 300 UNIT/3 ML PEN SUBQ SCH (21:00)
== END 2018-01-20 10:15 | disposition home or self-care (01) | DRG 638 ==
LOC: ED 18:46 → ICU 20:45 → MS3 01-19 18:41
PROVIDERS: ADMIT Hospitalist; ATTEND Internal Medicine
DX: E11.10 Type 2 diabetes mellitus with ketoacidosis without coma (principal); N17.9 Acute kidney failure, unspecified; E87.1 Hypo-osmolality and hyponatremia; E87.8 Other disorders of electrolyte and fluid balance, not elsewhere classified; K21.9 Gastro-esophageal reflux disease without esophagitis; E86.0 Dehydration; K29.70 Gastritis, unspecified, without bleeding; T38.3X6A Underdosing of insulin and oral hypoglycemic [antidiabetic] drugs, initial encounter; F17.200 Nicotine dependence, unspecified, uncomplicated; Z91.138 Patient's unintentional underdosing of medication regimen for other reason
CPT/HCPCS: 36415; 74160; 80048; 80053; 80061; 81001; 81003; 82009; 82330; 82803; 82947; 83036; 83605; 83615; 83690; 83721; 83735; 84100; 84478; 84484; 85025; 87086; 87150; 87338; 93005; 96361; 96374; 99283; 99285

== ENCOUNTER 2018-06-28 14:37 | Outpatient (CLI) | payer OTHER ==
[2018-06-28 18:38] LABS: EOSINOPHILS # (AUTO) 0.1 10^3/uL (0.0-0.7); EOSINOPHILS % (AUTO) 2.1 %; HGB - HEMOGLOBIN 15.1 g/dL (14.0-18.0); LYMPHOCYTES # (AUTO) 1.9 10^3/uL (1.5-3.5); LYMPHOCYTES % (AUTO) 40.1 %; MEAN CORPUSCULAR HGB CONC 34.4 g/dL (32.0-36.0); MONOCYTES # (AUTO) 0.6 10^3/uL (0.0-1.0); MONOCYTES % (AUTO) 12.5 %; NEUTROPHILS # (AUTO) 2.1 10^3/uL (1.5-6.6); NEUTROPHILS % (AUTO) 44.3 %; PLT - PLATELET COUNT 269 10^3/uL (130-450); RED BLOOD COUNT 4.88 10^6/uL (4.70-6.10); RED CELL DISTRIBUTION WIDTH 13.2 % (12.0-15.0); WHITE BLOOD COUNT 4.7 x10^3/uL (4.8-10.8)
[2018-06-28 19:17] LABS: ALBUMIN 4.2 g/dL (3.2-5.5); ALBUMIN/GLOBULIN RATIO 1.4 (1.0-2.2); ALKALINE PHOSPHATASE 73 IU/L (42-121); ALT ALANINE AMINOTRANSFERASE 22 IU/L (10-60); AST ASPARTATE AMINOTRANSFERASE 18 IU/L (10-42); BUN - BLOOD UREA NITROGEN 9 mg/dL (6-20); CALCIUM 9.1 mg/dL (8.5-10.3); CARBON DIOXIDE - CO2 28 mmol/L (21-32); CHLORIDE 96 mmol/L (101-111); CHOL/HDL RATIO 2.9 (<5.0); CHOLESTEROL 195 mg/dL; CREATININE 0.6 mg/dL (0.6-1.2); GFR - MDRD 146 (>89); GLUCOSE 355 mg/dL (70-100); HDL CHOLESTEROL 68 mg/dL; LDL CHOLESTEROL,CALCULATED 108 mg/dL; LDL/HDL RATIO 1.6 (<3.6); SODIUM 134 mmol/L (135-145); TOTAL PROTEIN 7.2 g/dL (6.7-8.2); VLDL CHOLESTEROL 19 mg/dL
[2018-06-28 19:40] LABS: HEMOGLOBIN A1C 2.12 g/dL; HEMOGLOBIN A1C % 14.3 % (4.6-6.2)
== END 2018-06-28 14:38 ==
LOC: LAB.N 14:37
PROVIDERS: ATTEND Physician Assistant Medical
DX: Z00.00 Encounter for general adult medical examination without abnormal findings (principal); E11.65 Type 2 diabetes mellitus with hyperglycemia
CPT/HCPCS: 36415; 80053; 80061; 83036; 83721; 84443; 85025

== ENCOUNTER 2018-07-29 12:52 | Inpatient (IN) | payer OTHER ==
[2018-07-29] MEDS ORDERED: ELECTROLYTE-A SOLUTION 2,000 ML IV ONE (13:19)
[2018-07-29 13:35] LABS: VBG PH 6.885 (7.31-7.41); VBG PO2 56.2 mmHg (25-47)
[2018-07-29 13:36] LABS: KETONES, SERUM (ACETEST) MODERATE (NEGATIVE); VBG BASE EXCESS -28.6 mmol/L (-2 - +2); VBG TOTAL CO2 4.3 mmol/L (24-29)
[2018-07-29 13:37] LABS: BASOPHILS % (AUTO) 0.8 %; EOSINOPHILS % (AUTO) 0.1 %; HGB - HEMOGLOBIN 15.6 g/dL (14.0-18.0); LYMPHOCYTES % (AUTO) 6.7 %; MEAN CORPUSCULAR HEMOGLOBIN 31.7 pg (27.0-31.0); MEAN CORPUSCULAR HGB CONC 31.4 g/dL (32.0-36.0); MEAN PLATELET VOLUME 8.1 fL (7.4-11.4); NEUTROPHILS % (AUTO) 82.4 %; PLT - PLATELET COUNT 408 10^3/uL (130-450); RED BLOOD COUNT 4.93 10^6/uL (4.70-6.10); WHITE BLOOD COUNT 22.5 x10^3/uL (4.8-10.8)
[2018-07-29] MEDS ORDERED: INSULIN REGULAR HUMAN 100 UNIT in SODIUM CHLORIDE 0.9% 100ML 99 ML IV STA (13:37)
--- NOTE | 2018-07-29 13:37 | ED Physician Documentation ---
History of Present Illness - Stated complaint Stated Complaint: HIGH BLOOD SUGAR - Chief complaint Chief Complaint: Abd Pain - History obtained from History obtained from: Patient, Friend - History of Present Illness Timing: Yesterday Pain level max: 6 Pain level now: 6 Improved by: nothing Worsened by: nothing - Additonal information Additional information: Patient is a 43-year-old male, diabetic who presents to the emergency department with vomiting since yesterday and blood sugar reading high on his glucometer. States has diffuse abdominal pain and muscle cramping. Has had DKA before. Nothing makes this better or worse. Unable to keep any medications down today Review of Systems Ten Systems: 10 systems reviewed and negative Constitutional: denies: Fever, Chills Ears: denies: Ear pain Skin: denies: Rash Musculoskeletal: denies: Neck pain, Back pain Neurologic: denies: Headache PD PAST MEDICAL HISTORY - Past Medical History Cardiovascular: None Respiratory: None Endocrine/Autoimmune: Type 2 diabetes GI: None : None HEENT: None Psych: None Musculoskeletal: None Derm: None - Past Surgical History Past Surgical History: Yes Ortho: Knee replacement - Present Medications Home Medications: Ambulatory Orders Medication Instructions Recorded Confirmed Blood Sugar Diagnostic [Glucometer 1 each MC QID #120 strip 01/20/18 Strips] Insulin Glargine [Lantus Solostar] 12 unit SUBQ QPM #1 pen 01/20/18 Lidocaine HCl [Lidocaine HCl 15 ml MM ACHS #1 bottle 01/20/18 Viscous] [place], Disposable [Needle] 1 each MC DAILY #30 dis.needle 01/20/18 Omeprazole [PriLOSEC] 20 mg PO DAILY #30 capsule 01/20/18 Sucralfate [Carafate] 1 gm PO ACHS #1 bottle 01/20/18 metFORMIN [Glucophage] 500 mg PO BIDWM #60 tablet 01/20/18 - Allergies Allergies/Adverse Reactions: Allergies Allergy/AdvReac Type Severity Reaction Status Date / Time No Known Drug Allergies Allergy Verified 03/03/13 18:50 - Social History Does the pt smoke?: Yes Smoking Status: Current every day smoker Does the pt drink ETOH?: No Does the pt have substance abuse?: No - Immunizations Immunizations are current?: Yes PD ED PE NORMAL - Vitals Vital signs reviewed: Yes - General General: Alert and oriented X 3, Other ([place] respirations) - HEENT HEENT: PERRL, Other (dry lips and tongue) - Neck Neck: Supple, no meningeal sign - Cardiac Cardiac: Strong equal pulses, Other (tachycardic) - Respiratory Respiratory: No respiratory distress, Clear bilaterally - Abdomen Abdomen: Soft, Non tender, Non distended - Derm Derm: Warm and dry - Extremities Extremities: No edema - Neuro Neuro: Alert and oriented X 3 Results - Vitals Vitals: Vital Signs - 24 hr 07/29/18 13:09 Temperature 36 C L Heart Rate 126 H Respiratory 40 H Rate Blood Pressure 121/62 O2 Saturation 96 Oxygen O2 Source Room air - Labs Labs: Laboratory Tests 07/29/18 07/29/18 07/29/18 13:25 13:25 13:25 WBC 22.5 H RBC 4.93 Hgb 15.6 Hct 49.8 MCV 101.0 H MCH 31.7 H MCHC 31.4 L RDW 14.0 Plt Count 408 MPV 8.1 Manual Slide Review Indicated VBG pH 6.885 L VBG pCO2 20.0 L VBG pO2 56.2 H VBG HCO3 3.7 L VBG Total CO2 4.3 L VBG O2 Saturation 78.8 VBG Base Excess -28.6 L Sodium 118 L* Potassium 5.4 H Chloride 82 L Carbon Dioxide < 6 L* Anion Gap 30.0 H BUN 36 H Creatinine 1.8 H Estimated GFR (MDRD) 41 L Glucose 966 H* Calcium 8.2 L Total Bilirubin 2.3 H AST 22 ALT 25 Alkaline Phosphatase 113 Total Protein 7.2 Albumin 3.9 Globulin 3.3 Albumin/Globulin Ratio 1.2 Lipase 50 Serum Ketones MODERATE H PD MEDICAL DECISION MAKING - ED course Complexity details: reviewed results, re-evaluated patient, considered differential, d/w patient ED course: Patient is a 43-year-old diabetic who presents with diabetic ketoacidosis. Given IV fluids started on insulin drip. Will admit to the ICU for further care. Discussed the case with Dr. Estrella, hospitalist who accepts. This document was made in part using voice recognition software. While efforts are made to proofread this document, sound alike and grammatical errors may occur. Departure - Departure Disposition: 66 [facility] DC/Xfer Clinical Impression: DKA (diabetic ketoacidoses) Qualifiers: Diabetes mellitus type: type 2 Diabetes mellitus complication detail: without coma Qualified Code(s): E11.10 - Type 2 diabetes mellitus with ketoacidosis without coma Nausea & vomiting Qualifiers: Vomiting type: unspecified Vomiting Intractability: non-intractable Qualified Code(s): R11.2 - Nausea with vomiting, unspecified Condition: Stable
[2018-07-29 13:49] LABS: ALBUMIN 3.9 g/dL (3.2-5.5); ALBUMIN/GLOBULIN RATIO 1.2 (1.0-2.2); ALKALINE PHOSPHATASE 113 IU/L (42-121); ALT ALANINE AMINOTRANSFERASE 25 IU/L (10-60); AST ASPARTATE AMINOTRANSFERASE 22 IU/L (10-42); BILIRUBIN,TOTAL 2.3 mg/dL (0.2-1.0); BUN - BLOOD UREA NITROGEN 36 mg/dL (6-20); CALCIUM 8.2 mg/dL (8.5-10.3); CHLORIDE 82 mmol/L (101-111); CREATININE 1.8 mg/dL (0.6-1.2); GFR - MDRD 41 (>89); LIPASE 50 U/L (22-51); TOTAL PROTEIN 7.2 g/dL (6.7-8.2)
[2018-07-29 13:51] LABS: SODIUM 118 mmol/L (135-145)
[2018-07-29 13:52] LABS: GLUCOSE 966 mg/dL (70-100)
[2018-07-29 13:53] LABS: CARBON DIOXIDE - CO2 < 6 mmol/L (21-32)
[2018-07-29] MEDS ORDERED: PANTOPRAZOLE 40 MG VIAL IVP STA (13:54)
[2018-07-29 13:57] LABS: ABNORMAL LYMPHS % (MANUAL) 0 %
[2018-07-29 13:58] LABS: BAND NEUTROPHILS % (MANUAL) 4 %; BASOPHILS # (MANUAL) 0.2 10^3/uL (0-0.1); BASOPHILS % (MANUAL) 1 %; DIFFERENTIAL COMMENT MANUAL DIFFERENTIAL; EOSINOPHILS # (MANUAL) 0.2 10^3/uL (0-0.7); LYMPHOCYTES # (MANUAL) 1.6 10^3/uL (1.5-3.5); LYMPHOCYTES % (MANUAL) 7 %; METAMYELOCYTES % (MANUAL) 1 %; MONOCYTES # (MANUAL) 1.6 10^3/uL (0.0-1.0); NEUTROPHILS # (MANUAL) 18.7 10^3/uL (1.5-6.6); NEUTROPHILS % (MANUAL) 79 %; PLATELET ESTIMATE, MANUAL NORMAL (130-450,000) (NORMAL); PLATELET MORPHOLOGY NORMAL APPEARANCE (NORMAL); RBC MORPHOLOGY (MULTIPLE) NORMAL APPEARANCE (NORMAL)
[2018-07-29] MEDS ORDERED: ELECTROLYTE-A SOLUTION 1,000 ML IV SCH (14:00)
[2018-07-29 14:34] LABS: BILIRUBIN,URINE NEGATIVE (NEGATIVE); GLUCOSE, URINE (UA) >=1000 mg/dL (NEGATIVE); KETONES,URINE (UA) >=80 mg/dL (NEGATIVE); LEUKOCYTE ESTERASE, URINE NEGATIVE (NEGATIVE); NITRITE,URINE NEGATIVE (NEGATIVE); OCCULT BLOOD,URINE SMALL (NEGATIVE); PROTEIN,URINE TRACE mg/dL (NEGATIVE); UROBILINOGEN,URINE 0.2 (NORMAL) E.U./dL (NORMAL)
[2018-07-29 14:43] LABS: CLARITY,URINE CLEAR (CLEAR)
[2018-07-29] MEDS ORDERED: MORPHINE 10 MG/ML VIAL IVP STA (14:43)
[2018-07-29 14:48] LABS: BACTERIA,URINE Rare /HPF (None Seen); CASTS, URINE 0-2 Cellular Casts /LPF; RBC,URINE 0-5 /HPF (0-5); SQUAMOUS EPITHELIAL CELL,UR RARE Squamous (<= Few)
[2018-07-29] MEDS ORDERED: ACETAMINOPHEN 325 MG TABLET PO PRN (15:37)
[2018-07-29] MEDS ORDERED: SODIUM CHLORIDE FLUSH 0.9% 10 ML SYRINGE IVP PRN (15:37)
[2018-07-29] MEDS ORDERED: PROCHLORPERAZINE 10 MG/2 ML VIAL IVP PRN (15:37)
[2018-07-29 16:01] LABS: VBG PCO2 25.9 mmHg (41-51); VBG PH 6.913 (7.31-7.41)
[2018-07-29 16:02] LABS: VBG BASE EXCESS -26.9 mmol/L (-2 - +2); VBG PO2 47.8 mmHg (25-47); VBG TOTAL CO2 5.9 mmol/L (24-29)
[2018-07-29 16:17] LABS: CALCIUM 7.7 mg/dL (8.5-10.3); CREATININE 1.6 mg/dL (0.6-1.2)
[2018-07-29] MEDS ORDERED: SODIUM BICARBONATE 100 MEQ in DEXTROSE 5% 1,000 ML IV SCH (17:00)
[2018-07-29 17:56] LABS: KETONES, SERUM (ACETEST) SMALL (NEGATIVE)
[2018-07-29] MEDS: HYDROmorphone 0.5 MG/0.5 ML SYRINGE IVP PRN ×3 (17:59→23:34)
[2018-07-29] MEDS: SUCRALFATE 1 GM/10 ML UDC PO SCH ×2 (17:59→21:06)
[2018-07-29] MEDS: SODIUM CHLORIDE FLUSH 0.9% 10 ML SYRINGE IVP SCH (17:59)
[2018-07-29] MEDS: METOCLOPRAMIDE 10 MG/2 ML VIAL IVP SCH (18:00)
[2018-07-29] MEDS: INSULIN REGULAR HUMAN 100 UNIT in SODIUM CHLORIDE 0.9% 100ML 99 ML IV SCH (18:00)
[2018-07-29 18:07] LABS: BUN - BLOOD UREA NITROGEN 37 mg/dL (6-20); CALCIUM 8.2 mg/dL (8.5-10.3); CHLORIDE 92 mmol/L (101-111); CREATININE 1.5 mg/dL (0.6-1.2); GFR - MDRD 51 (>89); MAGNESIUM 2.2 mg/dL (1.7-2.8); SODIUM 125 mmol/L (135-145)
[2018-07-29 18:08] LABS: CARBON DIOXIDE - CO2 8 mmol/L (21-32); GLUCOSE 598 mg/dL (70-100)
[2018-07-29] MEDS: NS W/20 MEQ KCL 1,000 ML IV SCH (18:54)
[2018-07-29 19:58] LABS: BUN - BLOOD UREA NITROGEN 35 mg/dL (6-20); CALCIUM 7.9 mg/dL (8.5-10.3); CHLORIDE 99 mmol/L (101-111); CREATININE 1.3 mg/dL (0.6-1.2); GFR - MDRD 60 (>89); GLUCOSE 432 mg/dL (70-100); SODIUM 126 mmol/L (135-145)
[2018-07-29 19:59] LABS: CARBON DIOXIDE - CO2 9 mmol/L (21-32)
[2018-07-29 20:03] LABS: KETONES, SERUM (ACETEST) SMALL (NEGATIVE)
--- NOTE | 2018-07-29 20:26 | HISTORY & PHYSICAL EXAMINATION ---
DATE OF SERVICE: 07/29/2018 Physician: Emily Estrella MD HISTORY OF PRESENT ILLNESS: This is a 43-year-old white male with history of insulin-dependant diabetes, DKA episode 6 months ago, history of GERD and possibly diabetic gastroparesis. The patient developed nausea and vomiting for about 1-1/2 days, was unable to keep down anything and decided to come in. In the ER presentation he was found again to have DKA. The patient continues to have mild nausea, no abdominal pain. He denies any shortness of breath, chest pain, palpitations, recent fever, or any diarrhea. ALLERGIES: NONE. MEDICATIONS: SoloSTAR insulin and Metformin 1000 b.i.d. REVIEW OF SYSTEMS: A comprehensive review of systems was performed and the pertinent positives are in the HPI, the rest are negative. FAMILY HISTORY: Noncontributory. SOCIAL HISTORY: He is a smoker, drinks rare alcohol and uses no illicit drugs. PHYSICAL EXAMINATION: GENERAL: A white male who has baldness, and a large [place]. His oral mucosa is dry. NECK: Shows no JVD or carotid bruits. CHEST: Clear. HEART: Heart sounds normal. No murmurs. ABDOMEN: Soft, nontender. No organomegaly. Normal bowel sounds. EXTREMITIES: No clubbing, cyanosis, edema. NEUROLOGIC: Intact. LABORATORY DATA: Sodium 118, potassium 5.4, bicarbonate less than 6, BUN 36, creatinine 1.8, glucose 966, anion gap 30. Venous blood gas had a pH of 6.88. Serum ketones were moderate. Urinalysis was large glucose, ketones and small occult blood, but negative bacteria. CBC showed a white blood count of 22.5, hemoglobin 15.6, MCV 101, platelet count 408. DIAGNOSTIC STUDIES: Chest x-ray and EKG were not done. IMPRESSION/DIAGNOSES: 1. Diabetic ketoacidosis. 2. Nausea and vomiting. 3. Gastroesophageal reflux disease. 4. Acute kidney injury. PLAN: Admit the patient to the ICU. Start DKA protocol including an insulin drip, IV saline, IV bicarbonate and antiemetics. Start with ice chips and advance his diet as tolerated to a diabetic diet. Continue him on his H2 megan as well as sucralfate, which he has taken in the past, and start Reglan scheduled. Follow his electrolytes, ketones, glucose, BUN and creatinine, magnesium, phosphate and CBC daily. If there is no resolution of the abdominal complaints with the above management, then abdominal imaging will be ordered tomorrow. DEEP VENOUS THROMBOSIS PROPHYLAXIS: SCDs. CODE STATUS: FULL CODE. ATTESTATION: The patient is expected to be discharged or transferred to another facility within 96 hours: Yes. TD: 07/29/2018 18:54 MTDAnthony
[2018-07-29] MEDS: FAMOTIDINE 20 MG/50 ML 50 ML IV SCH (21:09)
[2018-07-29 22:00] LABS: BILIRUBIN,URINE NEGATIVE (NEGATIVE); GLUCOSE, URINE (UA) >=1000 mg/dL (NEGATIVE); KETONES,URINE (UA) 40 mg/dL (NEGATIVE); LEUKOCYTE ESTERASE, URINE NEGATIVE (NEGATIVE); NITRITE,URINE NEGATIVE (NEGATIVE); OCCULT BLOOD,URINE SMALL (NEGATIVE); PROTEIN,URINE NEGATIVE (NEGATIVE); UROBILINOGEN,URINE 0.2 (NORMAL) E.U./dL (NORMAL)
[2018-07-29 22:09] LABS: CLARITY,URINE CLEAR (CLEAR)
[2018-07-29 22:10] LABS: RBC,URINE 0-5 /HPF (0-5); SQUAMOUS EPITHELIAL CELL,UR RARE Squamous (<= Few)
[2018-07-29 22:11] LABS: BACTERIA,URINE None Seen /HPF (None Seen)
[2018-07-30] MEDS: SODIUM CHLORIDE FLUSH 0.9% 10 ML SYRINGE IVP SCH ×4 (00:35→23:23)
[2018-07-30] MEDS: NS W/20 MEQ KCL 1,000 ML IV SCH ×5 (00:37→23:32)
[2018-07-30] MEDS ORDERED: LIDOCAINE VISCOUS 2% 15 ML UDC MM ONE (01:07)
[2018-07-30] MEDS ORDERED: MAG HYDROX/AL HYDROX/SIMETH 30 ML UDC ONE (01:08)
[2018-07-30 01:16] LABS: CALCIUM 8.3 mg/dL (8.5-10.3); CREATININE 0.8 mg/dL (0.6-1.2)
[2018-07-30] MEDS: GI COCKTAIL 120 ML BOTTLE PO SCH ×2 (01:33→17:20)
[2018-07-30] MEDS: METOCLOPRAMIDE 10 MG/2 ML VIAL IVP SCH ×4 (01:33→23:23)
[2018-07-30] MEDS: HYDROmorphone 0.5 MG/0.5 ML SYRINGE IVP PRN ×7 (04:17→23:23)
[2018-07-30 04:46] LABS: EOSINOPHILS % (AUTO) 0.1 %; HGB - HEMOGLOBIN 13.7 g/dL (14.0-18.0)
[2018-07-30 04:50] LABS: ALBUMIN 3.4 g/dL (3.2-5.5); ALBUMIN/GLOBULIN RATIO 1.4 (1.0-2.2); BILIRUBIN,TOTAL 1.1 mg/dL (0.2-1.0); CALCIUM 8.5 mg/dL (8.5-10.3); CREATININE 0.8 mg/dL (0.6-1.2); PHOSPHORUS 2.5 mg/dL (2.5-4.6); TOTAL PROTEIN 5.9 g/dL (6.7-8.2)
[2018-07-30 05:02] LABS: BASOPHILS % (AUTO) 0.5 %; LYMPHOCYTES % (AUTO) 10.1 %; MEAN CORPUSCULAR HEMOGLOBIN 32.4 pg (27.0-31.0); MEAN CORPUSCULAR HGB CONC 35.9 g/dL (32.0-36.0); MEAN CORPUSCULAR VOLUME 90.2 fL (80.0-94.0); MEAN PLATELET VOLUME 7.8 fL (7.4-11.4); MONOCYTES % (AUTO) 16.4 %; NEUTROPHILS % (AUTO) 72.9 %; PLT - PLATELET COUNT 267 10^3/uL (130-450); RED BLOOD COUNT 4.24 10^6/uL (4.70-6.10)
[2018-07-30 05:05] LABS: ABNORMAL LYMPHS % (MANUAL) 0 %
[2018-07-30 05:40] LABS: BAND NEUTROPHILS % (MANUAL) 13 %; DIFFERENTIAL COMMENT MANUAL DIFFERENTIAL; LYMPHOCYTES # (MANUAL) 4.2 10^3/uL (1.5-3.5); LYMPHOCYTES % (MANUAL) 26 %; METAMYELOCYTES % (MANUAL) 1 %; MYELOCYTES % (MANUAL) 2 %; NEUTROPHILS # (MANUAL) 10.4 10^3/uL (1.5-6.6); NEUTROPHILS % (MANUAL) 52 %; PLATELET ESTIMATE, MANUAL NORMAL (130-450,000) (NORMAL); RBC MORPHOLOGY (MULTIPLE) NORMAL APPEARANCE (NORMAL)
[2018-07-30 05:49] LABS: HB2 TOTAL 14.8 g/dL; HEMOGLOBIN A1C 1.85 g/dL; HEMOGLOBIN A1C % 13.6 % (4.6-6.2)
[2018-07-30] MEDS: SUCRALFATE 1 GM/10 ML UDC PO SCH ×4 (06:41→21:11)
[2018-07-30] MEDS: FAMOTIDINE 20 MG/50 ML 50 ML IV SCH ×2 (08:20→21:14)
[2018-07-30] MEDS: INSULIN REGULAR HUMAN 100 UNIT in SODIUM CHLORIDE 0.9% 100ML 99 ML IV SCH (08:45)
[2018-07-30] MEDS: INSULIN GLARGINE 300 UNIT/3 ML PEN SUBQ SCH (08:46)
[2018-07-30] MEDS: INSULIN ASPART 300 UNIT/3 ML PEN SUBQ SCH ×3 (12:40→21:08)
--- NOTE | 2018-07-30 16:07 | PROVIDER PROGRESS NOTE ---
Assessment/Plan - Problem List (1) Diabetic ketoacidosis Qualifiers: Diabetes mellitus complication detail: without coma Assessment/Plan: His ketones are small but still present but anion gap has closed. Will transition off Insulin drip to basal and sliding scale Insulin and advance his diet as tolerated. [facility] Apparently he never had testing for which type of DM he has. A fasting serum C Peptide level would help determine if the level is low and he makes no Insulin precursor and needs only Insulin management or if the C peptide level is elevated and he is Insulin resistant and Metformin helps at all. The C peptide test is a send-out to [employer] and only gets run Tues-Sat and we wouldn't be able to send the serum sample til after tonight's delivery, so no C peptide will be done now. (2) Nausea & vomiting Qualifiers: Vomiting type: unspecified Vomiting Intractability: non-intractable Qualified Code(s): R11.2 - Nausea with vomiting, unspecified Assessment/Plan: Slight improvement in his symptoms and will try to advance his diet. Continue scheduled Reglan for presumed diabetic gastroparesis and Sucralfate for GERD. (3) GERD (gastroesophageal reflux disease) Qualifiers: Esophagitis presence: esophagitis presence not specified Qualified Code(s): K21.9 - Gastro-esophageal reflux disease without esophagitis Assessment/Plan: As in #2 - Current Meds Current Meds: Current Medications Generic Name Dose Route Start Last Admin Trade Name Freq PRN Reason Stop Dose Admin Hydromorphone HCl 0.5 mg 07/29/18 15:37 07/30/18 12:38 Dilaudid Inj Syringe IVP 0.5 mg Q2H PRN Administration Pain 8 to 10 Famotidine 50 mls @ 100 mls/hr 07/29/18 21:00 07/30/18 09:00 Pepcid 20 Mg/50 Ml IV Infused BID SHAVON Infusion Potassium Chloride/Sodium Chloride 1,000 mls @ 100 mls/hr 07/30/18 00:35 07/30/18 13:00 Normal Saline 0.9% W/20 Meq Kcl IV 100 mls/hr .Q10H SHAVON Administration Insulin Aspart 1 - 9 unit 07/30/18 17:00 07/30/18 12:40 Novolog SUBQ 7 unit 0800,1200,1700,2100 SHAVON Administration Protocol Insulin Glargine 10 unit 07/30/18 09:00 07/30/18 08:46 Lantus Solostar SUBQ 10 unit DAILY SHAVON Administration Metoclopramide HCl 5 mg 07/29/18 16:00 07/30/18 08:20 Reglan Inj IVP 5 mg Q8H SHAVON Administration Multi-Ingredient Mouthwash/Gargle 30 ml 07/30/18 07:00 07/30/18 01:33 PO 30 ml BIDAC SHAVON Administration Prochlorperazine Edisylate 10 mg 07/29/18 15:37 07/29/18 23:38 Compazine Inj IVP 10 mg Q6HR PRN Administration Nausea / Vomiting Sodium Chloride 10 ml 07/29/18 17:00 07/30/18 09:55 Normal Saline Flush 0.9% IVP 10 ml 0100,0900,1700 SHAVON Administration Sucralfate 1 gm 07/29/18 16:00 07/30/18 11:14 Carafate PO 1 gm ACHS SHAVON Administration - Lab Result Fish Bone Diagrams: 07/30/18 04:15 07/30/18 04:15 - Additional Planning My Orders: My Active Orders 07/29/18 15:37 Initiate Line Care Protocol [RC] .protocol Acetaminophen [Tylenol] 650 mg PO Q4HR PRN HYDROmorphone INJ SYRINGE [Dilaudid Inj Syringe] 0.5 mg IVP Q2H PRN Prochlorperazine Inj [Compazine Inj] 10 mg IVP Q6HR PRN Sodium Chloride Flush 0.9% [Normal Saline Flush 0.9%] 10 ml IVP PRN PRN 07/29/18 15:38 Activity Orders [RC] Routine Daily Weight [RC] 0600 IO [RC] Q1HR Initiate Bowel Care Protocol [RC] QSHIFT Initiate Flu Vaccine Screening [RC] ONCE Initiate ICU Electrolyte Prot. [RC] .protocol Initiate Line Care Protocol [RC] .protocol Initiate Personal Care Protoco [RC] .protocol Initiate Pneumonia Vaccine Scr [RC] ONCE Vital Signs [RC] Q1HR Code Status [OTHERS] Routine Condition of Patient [OTHERS] Routine DVT Prophylaxis [OTHERS] Routine 07/29/18 15:40 Oral Care - Nursing [RC] Routine Oxygen Therapy [RC] .PRN SCDs [RC] QSHIFT Telemetry- [RC] Routine 07/29/18 15:43 Blood Glucose POC [RC] 0800,1200,1700,2100 Initiate Hypoglycemia Protocol [RC] .protocol Notify Provider - Specific Ins [RC] PRN Straight Catheter Insertion [RC] PRN 07/29/18 16:00 Metoclopramide Inj [Reglan Inj] 5 mg IVP Q8H Sucralfate [Carafate] 1 gm PO ACHS 07/29/18 17:00 Sodium Chloride Flush 0.9% [Normal Saline Flush 0.9%] 10 ml IVP 0100,0900,1700 07/29/18 20:45 Nutrition Consult [CONS] Routine 07/29/18 21:00 Famotidine 20 mg/50 ml [Pepcid 20 mg/50 ml] 50 ml IV BID 07/30/18 12:22 Blood Glucose Checks - Eating [] 0800,1200,1700,2100 07/30/18 17:00 Insulin Aspart [NovoLOG] 1 - 9 unit SUBQ 0800,1200,1700,2100 07/30/18 Lunch DIET [Carb-controlled Diet] [DIET] 07/31/18 05:00 CBC - COMP BLD CT W/AUTO DIFF [HEME] DAILYLAB COMPREHENSIVE METABOLIC PANEL [CHEM] DAILYLAB MAGNESIUM [CHEM] DAILYLAB PHOSPHORUS [CHEM] DAILYLAB 08/01/18 05:00 CBC - COMP BLD CT W/AUTO DIFF [HEME] DAILYLAB COMPREHENSIVE METABOLIC PANEL [CHEM] DAILYLAB MAGNESIUM [CHEM] DAILYLAB PHOSPHORUS [CHEM] DAILYLAB Subjective - Subjective Patient Reports: Feeling Better Objective Vital Signs: Vital Signs - 24 hr 07/29/18 07/29/18 07/29/18 18:00 19:00 20:00 Temperature Heart Rate Heart Rate [ 118 H 118 H 115 H Monitoring electrodes] Respiratory 16 17 15 Rate Blood Pressure 112/76 109/75 103/76 [Left Brachial artery] O2 Saturation 100 100 100 07/29/18 07/29/18 07/29/18 21:00 22:00 22:19 Temperature Heart Rate Heart Rate [ 119 H 115 H 81 Monitoring electrodes] Respiratory 18 18 Rate Blood Pressure 120/108 H 108/71 [Left Brachial artery] O2 Saturation 100 99 92 07/29/18 07/30/18 07/30/18 23:25 00:00 01:00 Temperature 37.0 C Heart Rate Heart Rate [ 115 H 114 H 109 H Monitoring electrodes] Respiratory 14 14 13 Rate Blood Pressure 117/87 H 102/72 103/74 [Left Brachial artery] O2 Saturation 98 98 97 07/30/18 07/30/18 07/30/18 02:00 03:00 04:13 Temperature 37.2 C Heart Rate Heart Rate [ 115 H 115 H Monitoring electrodes] Respiratory 13 14 15 Rate Blood Pressure 107/75 101/70 107/74 [Left Brachial artery] O2 Saturation 100 100 99 07/30/18 07/30/18 07/30/18 05:00 06:00 07:00 Temperature Heart Rate Heart Rate [ 115 H 106 H 109 H Monitoring electrodes] Respiratory 12 12 12 Rate Blood Pressure 109/71 105/78 96/80 [Left Brachial artery] O2 Saturation 99 100 100 07/30/18 07/30/18 07/30/18 08:00 09:00 10:00 Temperature 36.7 C Heart Rate Heart Rate [ 109 H 117 H 116 H Monitoring electrodes] Respiratory 14 24 23 Rate Blood Pressure 143/98 H 107/76 129/79 [Left Brachial artery] O2 Saturation 100 98 98 07/30/18 07/30/18 07/30/18 11:00 12:00 13:00 Temperature Heart Rate Heart Rate [ 116 H 115 H 122 H Monitoring electrodes] Respiratory 16 17 19 Rate Blood Pressure 107/73 125/77 127/77 [Left Brachial artery] O2 Saturation 100 100 100 07/30/18 07/30/18 07/30/18 14:00 15:00 15:07 Temperature 36.7 C Heart Rate 115 H Heart Rate [ 115 H 119 H Monitoring electrodes] Respiratory 12 22 22 Rate Blood Pressure 116/83 H 117/75 [Left Brachial artery] O2 Saturation 100 100 100 Oxygen O2 Source Room air I&O (Last 24 Hrs): Intake and Output Totals x24h 07/28/18 07/29/18 07/30/18 23:59 23:59 23:59 Intake Total 2980.534 4246.320 Output Total 3100 2250 Balance -016.909 3956.320 General: Alert, Oriented x3 HEENT: Mucous membr. moist/pink Neck: Supple, No JVD Neuro: Non Focal Cardiovascular: Regular rate, No murmurs Respiratory: No respiratory distress Abdomen: Soft, Other (Mild mid-abdominal tenderness) Extremities: No edema - Results Results: Laboratory Results WBC 16.0 x10^3/uL (4.8-10.8) H 07/30/18 04:15 RBC 4.24 10^6/uL (4.70-6.10) L 07/30/18 04:15 Hgb 13.7 g/dL (14.0-18.0) L 07/30/18 04:15 Hct 38.2 % (42.0-52.0) L 07/30/18 04:15 MCV 90.2 fL (80.0-94.0) 07/30/18 04:15 MCH 32.4 pg (27.0-31.0) H 07/30/18 04:15 MCHC 35.9 g/dL (32.0-36.0) 07/30/18 04:15 RDW 13.0 % (12.0-15.0) 07/30/18 04:15 Plt Count 267 10^3/uL (130-450) 07/30/18 04:15 MPV 7.8 fL (7.4-11.4) 07/30/18 04:15 Neut # (Auto) Not Reportable 07/30/18 04:15 Lymph # (Auto) Not Reportable 07/30/18 04:15 [place] # (Auto) Not Reportable 07/30/18 04:15 Eos # (Auto) Not Reportable 07/30/18 04:15 Baso # (Auto) Not Reportable 07/30/18 04:15 Absolute Nucleated RBC Not Reportable 07/30/18 04:15 Total Counted 100 07/30/18 04:15 Band Neuts % (Manual) 13 % (0-10) H 07/30/18 04:15 Abnorm Lymph % (Manual) 0 % 07/30/18 04:15 Metamyelocytes % 1 % (-0) H 07/30/18 04:15 Myelocytes % 2 % (-0) H 07/30/18 04:15 Nucleated RBC % Not Reportable 07/30/18 04:15 Neutrophils # (Manual) 10.4 10^3/uL (1.5-6.6) H 07/30/18 04:15 Lymphocytes # (Manual) 4.2 10^3/uL (1.5-3.5) H 07/30/18 04:15 Monocytes # (Manual) 1.0 10^3/uL (0.0-1.0) 07/30/18 04:15 Eosinophils # (Manual) 0.0 10^3/uL (0-0.7) 07/30/18 04:15 Basophils # (Manual) 0.0 10^3/uL (0-0.1) 07/30/18 04:15 Differential Comment MANUAL DIFFERENTIAL 07/30/18 04:15 Manual Slide Review Indicated 07/29/18 13:25 Platelet Estimate NORMAL (130-450,000) (NORMAL) 07/30/18 04:15 Platelet Morphology NORMAL APPEARANCE (NORMAL) 07/29/18 13:25 RBC Morph Micro Appear NORMAL APPEARANCE (NORMAL) 07/30/18 04:15 VBG pH 6.913 (7.31-7.41) L 07/29/18 15:57 VBG pCO2 25.9 mmHg (41-51) L 07/29/18 15:57 VBG pO2 47.8 mmHg (25-47) H 07/29/18 15:57 VBG HCO3 5.1 mmol/L (23-28) L 07/29/18 15:57 VBG Total CO2 5.9 mmol/L (24-29) L 07/29/18 15:57 VBG O2 Saturation 74.7 % (60-80) 07/29/18 15:57 VBG Base Excess -26.9 mmol/L (-2 - +2) L 07/29/18 15:57 Sodium 133 mmol/L (135-145) L 07/30/18 04:15 Potassium 4.9 mmol/L (3.5-5.0) 07/30/18 04:15 Chloride 105 mmol/L (101-111) 07/30/18 04:15 Carbon Dioxide 17 mmol/L (21-32) L 07/30/18 04:15 Anion Gap 11.0 (6-13) 07/30/18 04:15 BUN 27 mg/dL (6-20) H 07/30/18 04:15 Creatinine 0.8 mg/dL (0.6-1.2) 07/30/18 04:15 Estimated GFR (MDRD) 105 (>89) 07/30/18 04:15 Glucose 207 mg/dL (70-100) H 07/30/18 04:15 POC Whole Bld Glucose 109 mg/dL (70 - 100) H 07/30/18 01:27 Glycated Hemoglobin 13.6 % (4.6-6.2) H 07/30/18 04:15 Estim Average Glucose 344 (70-100) H 07/30/18 04:15 Calcium 8.5 mg/dL (8.5-10.3) 07/30/18 04:15 Phosphorus 2.5 mg/dL (2.5-4.6) 07/30/18 04:15 Magnesium 2.0 mg/dL (1.7-2.8) 07/30/18 04:15 Total Bilirubin 1.1 mg/dL (0.2-1.0) H 07/30/18 04:15 AST 14 IU/L (10-42) 07/30/18 04:15 ALT 15 IU/L (10-60) 07/30/18 04:15 Alkaline Phosphatase 76 IU/L (42-121) 07/30/18 04:15 Troponin I < 0.04 ng/mL (<0.49) 07/30/18 04:15 Total Protein 5.9 g/dL (6.7-8.2) L 07/30/18 04:15 Albumin 3.4 g/dL (3.2-5.5) 07/30/18 04:15 Globulin 2.5 g/dL (2.1-4.2) 07/30/18 04:15 Albumin/Globulin Ratio 1.4 (1.0-2.2) 07/30/18 04:15 Lipase 50 U/L (22-51) 07/29/18 13:25 Urine Color YELLOW 07/29/18 21:56 Urine Clarity CLEAR (CLEAR) 07/29/18 21:56 Urine pH 5.0 PH (5.0-7.5) 07/29/18 21:56 Ur Specific [place] <=1.005 (1.002-1.030) 07/29/18 21:56 Urine Protein NEGATIVE mg/dL (NEGATIVE) 07/29/18 21:56 Urine Glucose (UA) >=1000 mg/dL (NEGATIVE) H 07/29/18 21:56 Urine Ketones 40 mg/dL (NEGATIVE) H 07/29/18 21:56 Urine Occult Blood SMALL (NEGATIVE) H 07/29/18 21:56 Urine Nitrite NEGATIVE (NEGATIVE) 07/29/18 21:56 Urine Bilirubin NEGATIVE (NEGATIVE) 07/29/18 21:56 Urine Urobilinogen 0.2 (NORMAL) E.U./dL (NORMAL) 07/29/18 21:56 Ur Leukocyte Esterase NEGATIVE (NEGATIVE) 07/29/18 21:56 Urine RBC 0-5 /HPF (0-5) 07/29/18 21:56 Urine WBC 0-3 /HPF (0-3) 07/29/18 21:56 Ur Squamous Epith Cells RARE Squamous (<= Few) 07/29/18 21:56 Urine Bacteria None Seen /HPF (None Seen) 07/29/18 21:56 Urine Casts 0-2 Cellular Casts /LPF 07/29/18 14:13 Ur Microscopic Review INDICATED 07/29/18 21:56 Urine Culture Comments NOT INDICATED 07/29/18 21:56 Serum Ketones SMALL (NEGATIVE) H 07/30/18 14:14
[2018-07-30] MEDS: BENZOCAINE/MENTHOL LOZENGE MM PRN ×2 (19:57→22:19)
[2018-07-31] MEDS: BENZOCAINE/MENTHOL LOZENGE MM PRN ×2 (05:36→12:58)
[2018-07-31 05:40] LABS: BASOPHILS % (AUTO) 0.4 %; EOSINOPHILS % (AUTO) 0.2 %; HGB - HEMOGLOBIN 12.2 g/dL (14.0-18.0); LYMPHOCYTES # (AUTO) 2.2 10^3/uL (1.5-3.5); LYMPHOCYTES % (AUTO) 20.5 %; MEAN CORPUSCULAR HEMOGLOBIN 31.2 pg (27.0-31.0); MEAN CORPUSCULAR HGB CONC 34.1 g/dL (32.0-36.0); MEAN CORPUSCULAR VOLUME 91.5 fL (80.0-94.0); MEAN PLATELET VOLUME 7.4 fL (7.4-11.4); MONOCYTES # (AUTO) 1.5 10^3/uL (0.0-1.0); MONOCYTES % (AUTO) 14.7 %; NEUTROPHILS # (AUTO) 6.7 10^3/uL (1.5-6.6); NEUTROPHILS % (AUTO) 64.2 %; PLT - PLATELET COUNT 215 10^3/uL (130-450); RED BLOOD COUNT 3.93 10^6/uL (4.70-6.10); WHITE BLOOD COUNT 10.5 x10^3/uL (4.8-10.8)
[2018-07-31 06:16] LABS: ALBUMIN 3.1 g/dL (3.2-5.5); ALBUMIN/GLOBULIN RATIO 1.2 (1.0-2.2); BILIRUBIN,TOTAL 1.1 mg/dL (0.2-1.0); CALCIUM 8.4 mg/dL (8.5-10.3); CREATININE 0.7 mg/dL (0.6-1.2); PHOSPHORUS 2.4 mg/dL (2.5-4.6); TOTAL PROTEIN 5.7 g/dL (6.7-8.2)
[2018-07-31] MEDS: SUCRALFATE 1 GM/10 ML UDC PO SCH ×2 (06:51→11:35)
[2018-07-31] MEDS: GI COCKTAIL 120 ML BOTTLE PO SCH (06:52)
[2018-07-31] MEDS: NEUTRA-PHOS 250 MG TABLET PO SCH ×2 (08:00→10:30)
[2018-07-31] MEDS: HYDROmorphone 0.5 MG/0.5 ML SYRINGE IVP PRN ×2 (08:15→11:56)
[2018-07-31] MEDS: METOCLOPRAMIDE 10 MG/2 ML VIAL IVP SCH (08:15)
[2018-07-31] MEDS: SODIUM CHLORIDE FLUSH 0.9% 10 ML SYRINGE IVP SCH (08:16)
[2018-07-31] MEDS: INSULIN ASPART 300 UNIT/3 ML PEN SUBQ SCH ×2 (08:18→11:55)
[2018-07-31] MEDS: FAMOTIDINE 20 MG/50 ML 50 ML IV SCH (08:20)
[2018-07-31] MEDS: INSULIN GLARGINE 300 UNIT/3 ML PEN SUBQ SCH (09:14)
[2018-07-31] MEDS ORDERED: SODIUM CHLORIDE 0.9% 500 ML IV ONE (11:28)
--- NOTE | 2018-07-31 11:44 | Discharge Plan ---
Discharge Plan Disposition: Home, Self Care Condition: Stable Prescriptions: Insulin Aspart [NovoLOG] 1 - 9 unit SUBQ 0800,1200,1700,2100 #2 pen Metoclopramide [Reglan] 10 mg PO ACHS #60 tablet Pen Needle, Diabetic [Insulin Pen Needle] 1 each MC ACHS #150 dis.needle Diet: Diabetic Activity Restrictions: Activity as Tolerated Shower Restrictions: No Driving Restrictions: No Instruction Topics: Insulin Types, Diabetes Living Life Additional Instructions or Follow Up instructions: Please start using fast acting Insulin and doing fingerstick glucose monitoring. A new prescription for Aspart Insulin pens was ordered. A new prescription for diabetic needles was also ordered. Please get refills from your PCP or [facility] here. Continue your Lantus Insulin. New prescription for Reglan was also ordered. Use this before meals and bedtime if you get nausea and vomiting again. Your PCP or Diabetic Clinic should manage this, in case you have diabetic gastroparesis. See your PCP and/or Diabetic Clinic in 1-2 weeks in follow-up. If you have new or worsening symptoms, come to the ER. Follow-Up Care: [facility] - Diabetes Ed No Smoking: If you smoke, Please STOP! Call for help. Follow-up with: Milad Luna PA-C [Primary Care Provider] -
[2018-07-31 12:55] VITALS: BP 110/77
--- NOTE | 2018-08-04 14:42 | DISCHARGE SUMMARY ---
Physician: Emily Estrella MD DATE OF ADMISSION: 07/29/2018 DATE OF DISCHARGE: 07/31/2018 HISTORY OF PRESENT ILLNESS: This is a 43-year-old white male with history of insulin-dependent diabetes, unknown if it is type 1 or type 2 as he has never been tested for this, history of gastroesophageal reflux disease, and possibly diabetic gastroparesis. He has had 1 episode of DKA, 6 months ago. The patient presented with 1-1/2 days of nausea, vomiting, unable to keep anything down, and was found to be in DKA at ER testing. HOSPITAL COURSE AND DISCHARGE DIAGNOSES 1. Diabetic ketoacidosis. His admission A1c was 13.6, indicating poor control. The patient had a glucose level of 966 with anion gap of 30, VBG had a pH of 6.88, and urine showed small ketones. He was placed in the ICU on a DKA protocol including insulin drip, aggressive saline fluid replacement, potassium replacement when needed, close monitoring of his ketones, and glucose levels. He was seen by the diabetic education nurse, Cindy, from our [facility] clinic. He had been seen in that clinic one previous time and was interested in further followup and management of his diabetes there. He was discharged home on his same Lantus insulin and new short-acting insulin, and advised fingerstick checks and proper diabetic diet. 2. Acute kidney injury. The patient's admitting BUN was 36, and creatinine 1.8. These steadily decreased and improved with volume replacement. BUN was 17 and creatinine 0.7 at the time of discharge. 3. Nausea and vomiting. This was treated as if he had diabetic gastroparesis with Reglan on a scheduled dose. His symptoms resolved after 36 hours and his n.p.o. status was advanced to clear liquids, and he was able to tolerate solid foods by the time of discharge. 4. Gastroesophageal reflux disease. The patient has a history of this and was continued on his prehospital medications. LABORATORY AND IMAGING: Reviewed and summarized above. CONDITION AT DISCHARGE: Stable. PHYSICAL EXAMINATION VITAL SIGNS: Blood pressure 110/77, pulse of 97-100, afebrile, room air saturation 100%. HEENT: Unremarkable except for male pattern baldness and a large [place]. NECK: Without JVD or carotid bruits. CHEST: Clear. HEART: Sounds normal. ABDOMEN: Soft, nontender. No organomegaly. EXTREMITIES: No clubbing, cyanosis, or edema. NEUROLOGIC: Intact. FOLLOWUP: He was advised to see his PCP within 1 week, and to continue followup at the [facility] diabetic clinic here. CODE STATUS: He was initially a DNR, this was reviewed with him on the day of discharge and he indeed he wants to be a FULL CODE. Time required to complete this entire discharge, chart review, patient education, prescription orders, dictation: 60 minutes. cc: JUANA Olvera TD: 08/04/2018 13:46 REVISED-orig. signed 08/05/2018@0908 Moved to correct acct 08/05/2018@0923 chi MTDAnthony
== END 2018-07-31 14:05 | disposition home or self-care (01) | DRG 638 ==
LOC: ED 12:52 → ICU 15:38
PROVIDERS: ADMIT Internal Medicine; ATTEND Internal Medicine
DX: E11.10 Type 2 diabetes mellitus with ketoacidosis without coma (principal); N17.9 Acute kidney failure, unspecified; Z79.4 Long term (current) use of insulin; E11.43 Type 2 diabetes mellitus with diabetic autonomic (poly)neuropathy; K31.84 Gastroparesis; K21.9 Gastro-esophageal reflux disease without esophagitis; F17.200 Nicotine dependence, unspecified, uncomplicated
CPT/HCPCS: 36415; 80048; 80053; 81001; 81003; 82009; 82803; 82947; 83036; 83690; 83735; 84100; 84484; 85025; 87086; 87150; 96367; 96374; 96375; 99284

== ENCOUNTER 2018-09-02 19:34 | Outpatient (CLI) | payer OTHER | END 2018-09-02 19:35 | disposition short-term general hospital (02) | LOC: EMS 19:34 | PROVIDERS: ATTEND Surgery | DX: R11.2 Nausea with vomiting, unspecified (principal); R19.7 Diarrhea, unspecified; R53.1 Weakness; R09.89 Other specified symptoms and signs involving the circulatory and respiratory systems | CPT/HCPCS: A0425; A0427 ==